=== PATIENT | male | born 1955 | race Caucasian/White ===

== ENCOUNTER 2020-02-27 07:46 | Outpatient (CLI) | payer BC, SELFPAY ==
--- NOTE | ~2020-02-27 | US_ITS ---
US right upper quadrant INDICATION: Elevated liver function tests. Increased lactic acid. PROCEDURE: Realtime right upper abdominal ultrasound. COMPARISON: No prior studies for comparison. FINDINGS: The pancreas is normal without focal mass or pancreatic ductal dilation. Liver echotexture is increased consistent with fatty infiltration. There is normal directional flow in the portal vei n. There are gallstones. Common bile duct measures 6 mm. No sonographic Solis's sign. 3.9 cm right re nal cyst. IMPRESSION: 1: Cholelithiasis. 2: Fatty infiltration of the liver. Reviewed, dictated and finalized at location A.
--- NOTE | ~2020-02-27 | CT_ITS ---
EXAMINATION: CT lung screening DATE: 02/27/2020 08:33 INDICATION: Personal history of nicotine dependence. TECHNIQUE: Computed tomography (CT) of the chest was performed without intravenous contrast. The dose -length product was 247.82 mGy-cm. Automated exposure control and iterative reconstruction technique were employed. COMPARISON: Chest x-ray dated 04/09/2006 FINDINGS: There is atherosclerosis of the aorta and coronary arteries. No evidence for aneurysm. No t horacic lymphadenopathy. No significant pleural or pericardial effusion. Small hiatal hernia. Fatty i nfiltration of the liver. There are gallstones. There is gynecomastia. No focal airspace consolidatio n. There is a subsolid 3 mm nodule left upper lobe, image 44. Mild thoracic spondylosis. Status post median sternotomy for CABG. IMPRESSION: 1. Lung-RADS category 2: Benign appearance or behavior. Continue annual screening with noncontrast lo w-dose chest CT in 12 months. Reviewed, dictated and finalized at location A. IMPRESSION: 1. Lung-RADS category 2: Benign appearance or behavior. Continue annual screeni ng with noncontrast low-dose chest CT in 12 months.
== END 2020-02-27 07:47 | disposition home or self-care (01) ==
PROVIDERS: PCP Family Medicine; Visit Provider Physician Assistant
DX: Z12.2 Encounter for screening for malignant neoplasm of respiratory organs (principal); Z87.891 Personal history of nicotine dependence; K76.0 Fatty (change of) liver, not elsewhere classified; K80.20 Calculus of gallbladder without cholecystitis without obstruction
CPT/HCPCS: 76705; G0297

== ENCOUNTER 2022-04-21 13:57 | Outpatient (CLI) | payer MEDICARE, SELFPAY ==
--- NOTE | ~2022-04-21 | XR_ITS ---
XR hip LT min 2V DATE: 04/21/2022 14:15 INDICATION: Left hip pain TECHNIQUE: AP and lateral views COMPARISON: None FINDINGS: There is mild left hip osteoid arthritis. No fracture, dislocation, avascular necrosis or b one destruction. The pubic symphysis and left sacroiliac joint are intact. IMPRESSION: Mild left hip osteoarthritis Reviewed, dictated and finalized at location A.
== END 2022-04-21 13:58 | disposition home or self-care (01) ==
LOC: ANHIMG 14:01
PROVIDERS: PCP Family Medicine; Visit Provider Family Medicine
DX: M16.12 Unilateral primary osteoarthritis, left hip (principal)
CPT/HCPCS: 73502

== ENCOUNTER 2023-08-12 15:33 | Outpatient (CLI) | payer MEDICARE, SELFPAY ==
--- NOTE | ~2023-08-12 | XR_ITS ---
EXAMINATION: XR lumbar spine min 4V DATE: 08/12/2023 15:57 INDICATION: Worsening chronic low back pain TECHNIQUE: Anteroposterior, lateral, and bilateral oblique views of the lumbar spine, and cone-down l ateral view of the lumbosacral junction were obtained. COMPARISON: None. FINDINGS: Bone alignment is normal. There is mild anterior wedging at L1, L2, and L3, likely physiolo gic. There is moderate loss of intervertebral disc space height at L4-5 and L5-S1. There is severe fa cet joint osteoarthritis at L5-S1. Small degenerative osteophytes project from the anterior endplates of multiple vertebral bodies. Changes of left total hip arthroplasty are noted. IMPRESSION: 1. Severe lower lumbar spondylosis without acute findings. Reviewed, dictated and finalized at location B.
--- NOTE | ~2023-08-12 | XR_ITS ---
EXAMINATION: XR thoracic spine 3V DATE: 08/12/2023 15:58 INDICATION: Thoracic back pain TECHNIQUE: AP, lateral and lateral swimmer's views of the thoracic spine were obtained. COMPARISON: None. FINDINGS: Bone alignment is normal. There is no fracture. There is moderate loss of intervertebral di sc space height at multiple levels in the thoracic spine. Moderate lower cervical spondylosis is also noted. Median sternotomy wires are consistent with prior cardiac surgery. IMPRESSION: 1. Moderate thoracic spondylosis. Reviewed, dictated and finalized at location B.
== END 2023-08-12 15:34 ==
PROVIDERS: PCP Family Medicine; Visit Provider Family Medicine
DX: M47.896 Other spondylosis, lumbar region (principal); M47.894 Other spondylosis, thoracic region
CPT/HCPCS: 72072; 72110

== ENCOUNTER 2023-12-05 12:22 | Outpatient (CLI) | payer MEDICARE, SELFPAY ==
--- NOTE | ~2023-12-05 | XR_ITS ---
XR chest 2V DATE: 12/05/2023 12:37 INDICATION: Cough for 3 weeks TECHNIQUE: PA and lateral views COMPARISON: February 27, 2020 CT lung screening 04/09/2006 portable AP chest FINDINGS: Status post sternotomy. Heart size is normal. Aortic calcification. No hilar or mediastinal enlargement. No pulmonary infiltrate or consolidation, pleural effusion or pulmonary vascular congestion or pneumo thorax is detected. IMPRESSION: No active cardiopulmonary disease Aortic atherosclerosis Status post sternotomy Reviewed, dictated and finalized at location B. [employer] SAL[employer]
== END 2023-12-05 12:23 ==
PROVIDERS: PCP Family Medicine; Visit Provider Nurse Practitioner
DX: R05.9 Cough, unspecified (principal); I70.0 Atherosclerosis of aorta
CPT/HCPCS: 71046

== ENCOUNTER → 2023-12-29 10:39 | Outpatient (CLI) | payer MEDICARE, SELFPAY ==
--- NOTE | ~2023-12-29 | CT_ITS ---
CT Scan of the Chest without Contrast: Clinical Indication: Lung cancer screening, personal history of nicotine dependence Technique: Contiguous sections were acquired throughout the chest without intravenous contrast. Dose reduction technique was used on this scan by utilizing automated exposure control and iterative recon struction technique. The dose-length product (DLP) was 176.40 mGy-cm. COMPARISON: 02/27/2020 Findings: There is no evidence of any significant mediastinal, hilar or axillary lymphadenopathy. Coronary elizabeth ry calcifications are present. There is no evidence of pleural or pericardial effusion. The lungs are clear. No pulmonary nodules or infiltrates are noted. Images through the upper abdomen reveal multiple small gallstones. Impression: Lung RADS 1: Negative. 12 month follow-up screening CT advised. Reviewed, dictated and finalized at location . SAW RUNNER Impression: Lung RADS 1: Negative. 12 month follow-up screening CT advised.
== END ==
PROVIDERS: PCP Nurse Practitioner; Visit Provider Nurse Practitioner
DX: Z12.2 Encounter for screening for malignant neoplasm of respiratory organs (principal); Z87.891 Personal history of nicotine dependence
CPT/HCPCS: 71271

== ENCOUNTER 2024-12-18 01:06 | Day surgery (SDC) | payer MEDICARE, SELFPAY ==
[2024-12-04 13:28] VITALS: BMI 30.4
--- OUTSIDE RECORDS SUMMARY | 2024-12-18 01:07 | XMS_ITS | Continuity of Care Document ---
Author Organization [facility] Address [address] [place] [address] Phone Care Team Providers Care Burglar Alarm Inspector Name Role Phone Arsen RINCONALLISON MARKSRavi Unavailable Unavailab le Allergies, Adverse Reactions, Alerts Substance Reaction Status Criticality No Known Allergies Active No Inform ation Medications Medication Instructions Dosage Effective Dates (start - stop) Status Comments amoxicillin 500 mg tablet take 4 tablets by oral route 2 hours prior to dental visits - Active Valium 5 mg tablet take 1 tablet by oral route 2 times every day 5 MG - Active hydrocodone 5 mg-acetaminophen 325 mg tablet take 1-2 tablets by oral route every 4 hours as needed for post operative pain control - Active VASCEPA (unknown strength) Not Available - Active ROSUVASTATIN CALCIUM (unknown strength) Not Available - Active IBUPROFEN (unknown strength) Not Available - Active CARVEDILOL (unknown strength) Not Available - Active BRILINTA (unknown strength) Not Available - Active Procedures Procedure Date X-ray Exam Hip Unilat With Pelvis When P erf 2-3 View Global/Postop followup visit X-ray Exam Hip Unilat With Pelvis When P erf 2-3 View Global/Postop followup visit X-ray Exam Hip Unilat With Pelvis When P erf 2-3 View Office/outpatient visit,est, mod 2021 MRI Upper extr joint, w/o contrast MRI Upper extr joint, w/o contrast X-ray exam shoulder complete, minimum 2 views Office/outpatient visit,new, mod 2021 Wrist Lacer Wrist Lacer Advance Directives Directive Yes / No Effective Date File Name No Information Encounters Encounter Description Practice Location Reason(s) For Visit Diagnoses Date Provider Providers Copied on Encounter [facility], [address], [id number], [place] tel:[phone] [facility] left hip (chief complaint) Pain in left hipPresence of left artificial hip joint 2 Arsen Rodrigues. [address], [id number] , [place]. tel: [phone] Referring Provider: Marco Vera, [address] [place] [address], [place], [address]. tel:[phone] [facility], [address], [id number], [place] tel:[phone] [facility] No Information 2 Arsen Rodrigues. [address] [address], [place], [place], [id number] , [place]. tel:[phone] [facility], [address], [id number], [place] tel:[phone] [facility] left hip (chief complaint) Pain in left hipLumbago NOSPresence of left artificial hip joint 2 Arsen Rodrigues. [address], [id number] , [place]. tel: [phone] Referring Provider: Ravi Espinosa, [address] [address], [place], [address]. tel:[phone] [facility], [address], [id number], [place] tel:[phone] [facility] Unilateral primary osteoarthritis, left hip 2 Lisa Andrei er. [address] [facility], [address], [place], [place], [id number] , [place]. tel:[phone] [facility], [address] [facility] [address], [place], [place], [id number], [place] [phone] [facility] Unilateral primary osteoarthritis, left hip 2 Lisa Andrei er. [address] [facility], [address], [place], [place], [id number] , [place]. tel:[phone] Office/outpa tient visit,est, mod [facility], [address] [facility] [address], [place], [place], [id number], [place] [phone] [facility] Left Hip (chief complaint) Pain in left hipUnilateral primary osteoarthritis, left hip 2 [place]. [address] [place] [address], [facility] [address], [place], [place], [id number] , [place]. tel:[phone] Referring Provider: Marco Vera, [address] [place] [address] [address], [place], [address]. tel:[phone] [facility], [address] [facility] [address], [place], [place], [id number], [place] tel:[phone] [facility] Pain in left shoulderPain in right shoulder 2 [facility]. [address] [facility], [address], [place], [place], [id number] , [place]. tel:[phone] Referring Provider: Owen Sigala, [address] [facility] [address], [place], [address]. tel:[phone] [facility], [address] [facility] [address], [place], [place], [id number], [place] tel:[phone] [facility] Pain in left shoulder 2 [facility]. [address] [facility], [address], [place], [place], [id number] , [place]. [phone] Referring Provider: Owen Sigala, [facility] [address], [place], [address]. tel:[phone] Office/outpa tient visit,[place], [facility], [address] [facility], [place], [place], [id number], [place] tel:[phone] [facility] Bilateral shoulders (chief complaint) Pain in left shoulderPain in right shoulderCarpal tunnel syndrome, left upper limbCarpal tunnel syndrome, right upper limbIncomplete rotator cuff rupture of left shoulder, not specified as traumaticIncomp lete rotator cuff rupture of right shoulder, not specified as traumaticBody mass index (BMI) 31.0-31.9, adult 2 Charis Weaver. [address] [place] [address], [address], [place], [address], [place]. tel:[phone] Referring Provider: Owen Sigala, [address] [place] [address] [address], [place], [address]. tel:[phone] Family History Family Member Type Diagnosis Age At Onset Brother Problem (finding) Heart Disease Mother Problem (finding) Heart Disease Father Problem (finding) Heart Disease Immunizations Vaccine Date Status Comments influenza, injectable, quadrivalent, (3 years or older) administered Note: per patient ; Source: Source Unspecified Payers Payer name Insurance type Covered green party ID Authoriza tion(s) AARP Medicare Advantage HMO PPO CI [id number] Social History Type Description Quantity Date Captured Comments Alcohol Use Details Caffeine Use Details Unknown Tobacco Use Status Current non-smoker Smoking Status Former smoker Sex Male Vital Signs Date / Time: Height Weight BMI Pulse Rate Blood Pressure Temperature Respiratory Rate Body Surface Area Head Circumference Head Circ. Percentile Wt./[place]. Percentile BMI percentile Pulse Ox Inhaled Ox 10:20 AM 68.00 in 95.254 kg (210.00 lbs) 31.9 3 kg/m eter (2) Chief Complaint And Reason For Visit From encounter dated '10/08/2022 10:15'. left hip (chief complaint). Description: Hadley presents to the office today for ongoing postop evaluation of his left posterior total hip arthroplasty, date of surgery 07/22/2022. He has concluded physical therapy, and has initiated an exercise program on his own. He endorses mild intermittent gluteal pain that is worsened with increases to activity. Denies the use of interventions for pain control. Denies injury, trauma, or fall since last office visit. Denies fever, chills, generalized feelings of illness or malaise. He would like to discuss obtaining antibiotic medications for dental visits. He is ambulating without assistive device at today's office visit. Reason For Referral Reason For Referral No Information Plan Of Treatment Date Type Action Status Goal Dietary management education , guidance, and counseling completed Referral Ordered: X-ray Exam Hip Unilat With Pelvis When Perf 2-3 View LT hip ordered Referral Ordered: MRI Upper extr joint, w/o contrast RT shoulder Appointment date/timeframe: 05/12/2022 ordered Referral Ordered: MRI Upper extr joint, w/o contrast LT shoulder Appointment date/timeframe: 05/12/2022 ordered Referral Ordered: X-ray exam shoulder complete, minimum 2 views Bilateral ordered History Of Present Illness Encounter Date Complaint History Of Prese nt Illness left hip Hadley presents to the office today for ongoing postop evaluation of his left posterior total hip arthroplasty, date of surgery 07/22/2022. He has concluded physical therapy, and has initiated an exercise program on his own. He endorses mild intermittent gluteal pain that is worsened with increases to activity. Denies the use of interventions for pain control. Denies injury, trauma, or fall since last office visit. Denies fever, chills, generalized feelings of illness or malaise. He would like to discuss obtaining antibiotic medications for dental visits. He is ambulating without assistive device at today's office visit. left hip Hadley is a plea ger 66-year-old male who presents to the office today for initial postop evaluation of his left total hip arthroplasty, date of surgery 07/22/2022. Denies injury, trauma, or fall since surgical intervention. Denies fever, chills, generalized feelings of illness or malaise. States compliance with the use of aspirin for DVT prophylaxis and with maintaining posterior hip precautions. He is participating in physical therapy and feels that it is going all right. He endorses moderate constant trochanteric pain that is worsened with sit to stand maneuver sitting for an extended period of time ambulating for an extended period of time, lying down for an extended period of time, and worsened after physical therapy. Pain is managed with the use of movement of the hip, hydrocodone, acetaminophen, meloxicam. Indicates that he did utilize a Valium at night and has been able to obtain 3-4 hours of sleep at a time with its use. He is now experiencing significant diffuse low and mid back pain that is worsened with therapy exercises. States concern over ongoing long-term constant pain would like to discuss medication usage or possible changes. He is ambulating with the use of a cane at today's office visit and accompanied to the visit by his . Left Hip Hadley is a 66 y ear-old male who presents to the office for evaluation of left hip pain. He presents for significant left hip pain. He is 5 foot 8 weighs 210 pounds. He denies acute trauma. His pain as an 8 out of 10. He has severe aching, constant dull pain -- characteristics include sharp, stabbing and throbbing. His symptoms include burning, decreased motion, difficulty sleeping, giving way, limping, night pain, weakness. He endorses severe groin pain that is functionally limiting with range of motion. Symptoms are improved with [id number] medication such as ibuprofen, . And Tylenol. He has used a cane and been limping.He is a history of cardiac stenting and open heart surgery he has recently come off his Brilinta. He is recently retired from a job in sales. His pain is functionally limiting has been present for greater than 6 months. It is affecting his activities of daily living. -- He has actually started using some hydrocodone to help this pain. We discussed that this was not a good plan and he should limit utilizing any narcotics. Bilateral shoulders Michael is a very pleasant 66-year-old left-hand dominant male who presents for initial evaluation of chronic, atraumatic bilateral shoulder pain. He states that the left shoulder has been hurting for years. He has seen an outside provider for this. He has been in physical therapy recently. He has gone to a full course. Despite this, he notes persistent, functionally limiting left shoulder pain. The same is true on the right side. He has noticed this for as long, but currently, his right shoulder bothers him more than his left. He states that the pain is worse with lifting things away from his body or overhead. He feels very weak. He has night pain. This pain and functional limitation is persistent despite a full course of physical therapy recently. He also endorses some intermittent bilateral hand numbness. He cannot really describe where the numbness is. It will wake him up from night sometimes. He denies any neck or radicular symptoms. Of note, he does have a history of an [place] last year. He saw his Pathology Laboratory Aide yesterday and has been cleared. He is doing well. Functional Status Date Functional Assessmen t No Information Instructions Date Instruction Additional Infor al We discussed in [place] the specifics of the operation consisting of the pre-operative evaluation, the surgical procedure, and the post operative recovery course. I explained the prosthetic ( ceramic on polyethylene bearing). We discussed the risks and benefits. Specifically, bleeding, possible blood transfusion, DVT, PE, dislocation, infection, persistent pain, mechanical loosening, leg length discrepancy. We also obtained templating radiographs to size the components and measure the pre-operative leg lengths. We discussed the hospital stay vs outpatient total joint procedure and the recovery period. Including, post op PT and DVT prophylaxis. Appropriate medical evaluation will be obtained and the patient will be scheduled for total hip arthroplasty.We discussed that he has femoral acetabular impingement which is likely increasing his him symptoms and hip pain. Given his cardiac history is surgery would need to be performed at [facility]. We will proceed through a posterior lateral approach. Related to Unilateral primary osteoarthritis, left hip Giving encouragement to exercise Related to Body mass index [BMI] 31.0-31.9, adult Dietary management e ducation, guidance, and counseling Related to Body mass index [BMI] 31.0-31.9, adult Assessments Type Assessment Date assessment Pain in left hip assessment Presence of left artificial hip joint impression Left posterior total hip arthroplasty, date of surgery 07/22/2022.No suspicion of mechanical loosening or septic joint at this time. He will continue to maintain an adequate level of physical activity, a strengthening program, and an exercise program. He may use rest, ice, elevation, [id number] pain medications and NSAIDs for pain and inflammation. Discussed ongoing long-term recovery after total hip arthroplasty, and anticipatory events throughout the next year. He will utilize an antibiotic prior to any dental visits, and a prescription was sent to his pharmacy at the conclusion of today's office visit. He demonstrates appropriate understanding of the diagnosis and plan of care at this time and will follow up with our office in one year for both radiologic and physical evaluation of his left total hip arthroplasty. He was encouraged to contact the office with any questions or concerns. Dictation completed with [employer] Practice Edition software, grammatical variances and spelling errors may inadvertently occur Patient Care Teams Name Effective Dates (start - stop) Status Members No Information
--- OUTSIDE RECORDS SUMMARY | 2024-12-18 01:07 | XMS_ITS | Referral Summary ---
Author Organization [facility] [address] Address [address] [place] [address] Care Team Providers Care Bowling Ball Finisher Name Role Phone Katya An DO Primary Care Provider [phone]- [phone] Alirio Rosas MD Unavailable Marco Gonzalez MD Unavailable [phone] Encounters Date Type Department Care Team Description 11/08/2024 10:30 AM GYPSUM CALCINER Procedure visit [facility] Dermatology [address] [facility] [address] [place] [address] Cl Josue MD Squamous cell carcinoma of skin of left upper limb, including shoulder (Primary Dx); Actinic keratosis; Dyshidrotic eczema 10/17/2024 Telephone [facility] Cardiology [address] [facility] [address] [place] [address] Alirio Rosas MD Med Management from Last 3 Months Allergies Active Allergy Reactions Criticality Noted Date Comments Penicillins Rash Medium 03/05/2013 Medications olmesartan (BENICAR) 40 mg tablet Take 0.5 tablets (20 mg total) by mouth daily Active Vascepa 1 gram capsule Take 2 capsules (2 g total) by mouth 2 (two) times a day 0 Active rosuvastatin (CRESTOR) 40 mg tablet Take 1 tablet (40 mg total) by mouth every other day 0 Active lutein-zeaxanth in 20 mg- 1,000 mcg capsule Take 1 capsule by mouth daily Active metFORMIN XR (GLUCOPHAGE XR) 500 mg 24 hr tablet Take 1 tablet (500 mg total) by mouth 2 (two) times a day 2 Active aspirin 81 mg enteric coated tabletIndicatio ns:Deep Vein Thrombosis Prevention Take 1 tablet (81 mg total) by mouth 2 (two) times a day 2 Active carvediloL (COREG) 6.25 mg tablet Take 1 tablet (6.25 mg total) by mouth 2 (two) times a day with meals 3 Active naproxen (NAPROSYN) 500 mg tablet Take 1 tablet (500 mg total) by mouth 2 (two) times a day with meals Active empagliflozin (Jardiance) 10 mg tablet TAKE 1 TABLET BY MOUTH DAILY 100 tablet 3 4 Active nitroglycerin (NITROSTAT) 0.[address] 1 tablet (0.4 mg total) under the tongue every 5 (five) minutes as needed for chest pain May repeat dose q 5 min, up to 3 doses total 25 tablet 3 4 Active fluorouraciL (EFUDEX) 5 % cream Apply topically daily For 4 weeks to forearms 40 g 1 5 Active clobetasoL (TEMOVATE) 0.05 % ointment Apply topically 2 (two) times a day as needed (irritation on hands) 60 g 1 5 Active Active Problems Problem Noted Date Diagnosed Date Angina pectoris, unspecified 07/12/2024 Borderline diabetes mellitus 07/19/2022 Gout 07/19/2022 Coronary artery disease 07/19/2022 Hypertension 07/19/2022 Myocardial infarction 07/19/2022 Obesity (BMI 30.0-34.9) 07/19/2022 Rectal fissure 07/19/2022 Gait instability 07/19/2022 BPH (benign prostatic hyperplasia) 07/19/2022 Gall bladder stones 07/19/2022 CKD (chronic kidney disease) 07/19/2022 Primary osteoarthritis of left hip 05/27/2022 Overview (05/27/2022): Added automatically from request for surgery [id number] Hyperlipidemia 05/05/2021 Type 2 diabetes mellitus 05/05/2021 Myocardial infarction 05/05/2021 Special screening for malignant neoplasms, colon 02/09/2019 Overview (02/09/2019): Added automatically from request for surgery [id number] 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 Rectal pain 12/02/2018 Essential hypertension 12/02/2018 CAD (coronary artery disease) 12/02/2018 CKD (chronic kidney disease) stage 3, GFR 30-59 ml/min 12/02/2018 Renal cyst 12/02/2018 Obesity (BMI 30-39.9) 12/02/2018 Hx of CABG 09/19/2018 Anal fissure 06/22/2011 Immunizations Immunization Administration Dates Next Due Influenza, Quadrivalent, Rec ombinant, Egg Free, Preservative Free, Intramuscular 08/11/2020 Influenza, Quadrivalent, Spl it, Preservative Free, Intramuscular 10/03/2018 Influenza, Trivalent, IM (MDV) 08/31/2011 Tdap 10/03/2018 Social History Tobacco Use Types Packs/Day Years Used Date Smoking Tobacco: Former Cigarettes Q uit: 12/01/2018 Smokeless Tobacco: Never Comments:on and off for year s Alcohol Use Standard Drinks/Week Comments Yes 4 (1 standard drink = 0.6 oz pur e alcohol) AUDIT-C Answer Date Recorded Q1: How often do you have a drink containing alc ohol? 2-3 times a week 07/22/2022 Q2: How many drinks containi ng alcohol do you have on a typical day when you are drinking? 3 or 4 07/22/2022 Q3: How often do you have si x or more drinks on one occasion? Never 07/22/2022 Sex and Gender Information Value Date Recorded Sex Assigned at Not on file Legal Sex Male 3:44 AM GYPSUM CALCINER Gender Identity Not on file Sexual Orientation Not on file Last Filed Vital Signs Vital Sign Reading Time Taken Comments Blood Pressure 126/74 11/08/2024 10:57 AM GYPSUM CALCINER Pulse 53 11/08/2024 10:57 AM GYPSUM CALCINER Temperature 36.3 C (97.3 F) 07/23/2022 3:45 AM CDT Respiratory Rate 18 07/23/2022 3:45 AM CDT Oxygen Saturation 96% 11/08/2024 10:57 AM GYPSUM CALCINER Inhaled Oxygen Concentration - - Weight 89.4 kg (197 lb) 07/12/2024 11:26 AM CDT Height 172.7 cm (5' 8 ) 07/12/2024 11:26 AM CDT Body Mass Index 29.95 07/12/2024 11:26 AM CDT Plan of Treatment Not on file Medical Devices Implanted Type Area Metal Bonding Helper Device Identifier Shelf Expiration Date Model / Serial / Lot [employer] [id number] Synergy 3mm 16mm 144cm Radiopaque 1 Access Port Inflation Lumen - S0 - [id number] Implanted:Qty: 1 on 05/06/2021 by Alirio Rosas MD at [facility] Stent [employer] 07/14/2022 [id number] / 0 / [id number] Description:Circumflex [employer] [id number] Synergy 3.5mm 38mm 144cm Radiopaque 1 Access Port Inflation Lumen - S0 - [id number] Implanted:Qty: 1 on 05/06/2021 by Alirio Rosas MD at [facility] Stent [employer] 09/15/2022 [id number] 350 / 0 / [id number] Description:Circumflex [employer] Shell Acetabular Trident Ii Tritanium F Od56mm Hip 5 Screw Hole Cluster Sterile 702-04-56f - [id number] Implanted:Qty: 1 on 07/22/2022 by Marco Gonzalez MD at [facility] Left: Hip [employer] [id number] 04/09/2027 702-04-56F / / [id number] [employer] Screw Bone Trident Ii L50mm Od6.5mm Low Profile Hexagonal Sterile 7338-8309 - [id number] Implanted:Qty: 1 on 07/22/2022 by Marco Gonzalez MD at [facility] Left: Hip [employer] [id number] 05/05/2027 1465-2118 / / [id number] [employer] Insert Trident 0deg X3 36mm Id 723-00-36f - [id number] Implanted:Qty: 1 on 07/22/2022 by Marco Gonzalez MD at [facility] Left: Hip [employer] 05/16/2027 723-00-36F / / [id number] [employer] Accolade 108mm 35mm Modular Hip 127d 5 Taper Stem Femoral Sterile [id number] - [id number] Implanted:Qty: 1 on 07/22/2022 by Marco Gonzalez MD at [facility] Left: Hip [employer] [id number] 05/31/2027 [id number] / / [id number] [employer] V40 36mm Anatomic Hip -2.5mm Offset Taper Head Femoral [employer] 6570-0-436 - [id number] Implanted:Qty: 1 on 07/22/2022 by Marco Gonzalez MD at [facility] Left: Hip [employer] [id number] 08/02/2025 6570-0-436 / / [id number] Procedures Procedure Name Priority Date/Time Associated Diagnosis Comments POCT LIPID PANEL Routine 07/12/2024 11:3 0 AM CDT Hyperlipidemia, unspecified hyperlipidemia type EGFR Routine 07/09/2022 2:32 PM CDT Preop testing HEMOGLOBIN A1C Routine 07/09/2022 2:32 PM CDT Preop testing COLONOSCOPY 03/02/2019 11:50 AM CDT PSA SCREEN STAT 12/02/2018 10:[address] ABDOMEN PELVIS W CONTRAST ED 12/02/2018 12:33 AM GYPSUM CALCINER from Last 3 Months or Most Recently Relevant to Health Maintenance Results * POCT lipid panel (07/12/2024 11:30 AM CDT) Cholesterol, POC 161 mg/dL HDL, POC 27 mg/dL Triglycerides, POC 343 mg/dL LDL Cholesterol POC 65 mg/dL Chol/HDL Ratio, POC 2.4 Non-HDL Cholesterol, POC 133 mg/dL Cholesterol Total, POC 161 mg/dL Capillary blood 07/12/2024 1 1:30 AM CDT us Alirio Rosas MD POINT OF CARE TEST ORDERABLES Fi nal Result * eGFR (07/09/2022 2:32 PM CDT) eGFR 77 mL/min/1. 73 m2 [facility] Comment: Interpretive Data Reference Interval Normal >/= 90 mL/min/1.73m2 Mildly decreased* 60 - 89 mL/min/1.73m2 Mildly to moderately decreased 45 - 59 mL/min/1.73m2 Moderately to severely decreased 30 - 44 mL/min/1.73m2 Severely decreased 15 - 29 mL/min/1.73m2 Kidney Failure < 15 mL/min/1.73m2 *Relative to young adult level Estimated glomerular filtration rate is determined by the 2020 CKD-EPI equation recommended by the National Kidney Foundation (A Unifying Approach to GFR Estimation: Recommendations of the NKF-ASK Task Force on Reassessing the Inclusion of Race in Diagnosing Kidney Disease, JASN 2020). The CKD-EPI equation should not be used for patients with unstable renal function and has not been validated in children and those over 70. Current interpretive data was last reviewed 2021. Blood 07/09/2022 2:32 PM CDT 07/09/2022 2:32 PM CDT us Suri Perez NP LAB BLOOD ORDERABLES Final R esult [facility] [address] Department [place] [address] * (ABNORMAL) Hemoglobin A1c (07/09/2022 2:32 PM CDT) Hgb A1C 5.8(H) 4.0 - 5.6 % [facility] Estimated Average Glucose 120 mg/dL [facility] Comment: The ADA recommends reporting an estimated Average Glucose (eAG) with all Hemoglobin A1c results using the equation derived from a study of 507 normal and diabetic adults. Minority populations were underrepresented and children were not included. (Diabetes Care 31:8653-4693, 2008). The eAG is not equivalent to a fasting glucose. Blood 07/09/2022 2:32 PM CDT 07/09/2022 2:32 PM CDT us Suri Perez NP LAB BLOOD ORDERABLES Final R esult [facility] [address] Department [place] [address] * COLONOSCOPY (03/02/2019 11:50 AM CDT) Anatomical Region Laterality Modality Other Narrative Procedure Note Max Edmond MD - 03/02/2019 11:50 AM CDT ENDOSCOPY LAB Patient Name: Hadley Culver Procedure Date: 03/02/2019 11:50 AM Admit Type: Outpatient Room: [facility] Date of : 1955 Instrument Name: [id number] Gender: Male Note Status: Finalized Procedure: Colonoscopy Indications: Screening for colorectal malignant neoplasm Comorbidities No comorbidities Providers: Max Edmond M.D. Referring MD: Ian Hinojosa MD Medicines: See the Anesthesia note for documentation of the administered medications Complications: No immediate complications. Estimated blood loss:Minimal. Estimated Blood Loss: Estimated blood loss was minimal. Procedure: Pre-Anesthesia Assessment: - Prior to the procedure, a History and Physical was performed, and patient medications, allergies and sensitivities were reviewed. The patient's tolerance of previous anesthesia was reviewed. - The risks and benefits of the procedure and thesedation options and risks were discussed with the patient. All questions were answered and informed consent wasobtained. The benefits, risks and alternatives of the procedureand sedation were discussed and informed consent wasobtained. All questions were answered. Please refer to the signed informed consent document in the medical record. Thescope was passed under direct vision. The Colonoscope was introduced through the anus and advanced to the the terminal ileum, with identification of the appendiceal orifice and IC valve. The bowel preparation used was SUPREP. The quality of the bowel preparation wasevaluated using the BBPS ([place] Bowel Preparation Scale) with scores of: Right Colon = 3 (entire mucosa seen wellwith no residual staining, small fragments of stool oropaque liquid), Transverse Colon = 2 (minor amount of residual staining, small fragments of stool and/or opaqueliquid, but mucosa seen well) and Left Colon = 3 (entire mucosa seen well with no residual staining, small fragments of stool or opaque liquid). The total BBPS score equals 8. The quality of the bowel preparation was excellent.Bowel prep was administered using a split dose. Findings: The perianal and digital examinations were normal. Pertinentnegatives include fissure healed, wounds ok. A 3 mm polyp was found in the rectum rectum (benign-appearinglesion). The polyp was sessile. The polyp was removed with a cold biopsyforceps. Resection and retrieval were complete. The exam was otherwise without abnormality on direct and retroflexion views. Impression: - One benign appearing 3 mm polyp in the rectum in the rectum, removed with a cold biopsy forceps. Resectedand retrieved. - The examination was otherwise normal on direct and retroflexion views. Recommendation: - Repeat colonoscopy in 5-10 years for surveillancebased on pathology results. Electronically signed by Max Edmond M.D. Max Edmond M.D. 03/02/2019 12:44:21 PM Number of Addenda: 0 Note Initiated On: 03/02/2019 11:50 AM us Max Edmond MD ENDOSCOPY PROCEDURES Fin al Result * PSA screen (12/02/2018 10:50 AM GYPSUM CALCINER) PSA-Total 0.69 <=5.40 ng/mL [facility] Comment: Interpretive Data AGE SEX REFERENCE INTERVAL 0 minutes-150 years Female None 0 minutes-49 years Male None 50-59 years Male 0-3.90 60-69 years Male 0-5.40 70-79 years Male 0-6.20 80-150 years Male 0-6.20 Current interpretive data last revised 2018. Blood specimen (specimen) 12/02/2018 10:50 AM GYPSUM CALCINER 12/02/2018 11:01 AM GYPSUM CALCINER Narrative [facility] - 12/02/2018 11:37 AM GYPSUM CALCINER us Danny Lynn MD LAB BLOOD ORDERABLES Radha l Result [facility] [address] Department [place] [address] * CT Abdomen Pelvis W Contrast (12/02/2018 12:33 AM GYPSUM CALCINER) Anatomical Region Laterality Modality Body N/A Computed Tomogra phy 12/02/2018 10:3 0 AM GYPSUM CALCINER Addenda Addendum by Norah Buckley MD on 12/02/2018 11:39 AM GYPSUM CALCINER Rectal wall does appear to be prominent. However, no surrounding soft tissue inflammatory change or abscess is seen. Electronically signed by: Norah Buckley M.D. Impressions 12/02/2018 10:35 AM GYPSUM CALCINER 1. Hepatomegaly with hepatic steatosis 2. Cholelithiasis 3. Very small hiatal hernia 4. Prominence of the wall the sigmoid colon, likely related to incomplete distention. Associated changes of obstruction or acute inflammatory change is not seen. This report is in agreement with the preliminary report Electronically signed by: Norah Buckley M.D. Narrative 12/02/2018 10:35 AM GYPSUM CALCINER EXAM: CT abdomen and pelvis with IV contrast HISTORY: Severe rectal pain that has increased in intensity over one to 2 weeks. Previous hemorrhoidectomy 6-7 years ago. Surgical history of anal fistula repair COMPARISON: None available. FINDINGS: Spiral CT of the abdomen and pelvis was obtained with 95 mL Optiray 350 intravenous contrast. A preliminary report was faxed to emergency room on 12/02/2018 at 0112 hours. Lung bases are clear. There is hepatic steatosis with hepatomegaly of 20 to centimeter. There is no focal liver mass. There is cholelithiasis with no bile duct dilatation. There is no gallbladder wall thickening or pericholecystic fluid. Pancreas is normal. Adrenal glands are symmetric. Spleen is normal. There are right renal cysts. There is no hydronephrosis or urolithiasis. Ureters and urinary bladder normal. Prostate gland and seminal vesicles are normal. There is no bowel obstruction. Mild amount stool is seen in the right hemicolon and transverse colon. The descending and sigmoid colon is completely decompressed. Bowel wall prominence in the sigmoid colon is likely related to incomplete distention. No surrounding soft tissue inflammatory changes noted. There is no pneumatosis. The appendix is normal. There is a very small hiatal hernia. There is scattered calcification the abdominal aorta and iliac arteries with no aneurysm. There is no abdominal or pelvic ascites or lymphadenopathy. There are a few mesenteric lymph nodes in the left mid abdomen with minimal soft tissue stranding suggesting very mild nonspecific mesenteritis. There is an extremely tiny periumbilical hernia containing fat. Inguinal regions are normal. There are degenerative changes in the thoracal lumbar spine with no focal bone lesion. Procedure Note Norah Buckley MD - 12/02/2018 EXAM: CT abdomen and pelvis with IV contrast HISTORY: Severe rectal pain that has increased in intensity over one to 2 weeks. Previous hemorrhoidectomy 6-7 years ago. Surgical history of anal fistula repair COMPARISON: None available. FINDINGS: Spiral CT of the abdomen and pelvis was obtained with 95 mL Optiray 350 intravenous contrast. A preliminary report was faxed to emergency room on 12/02/2018 at 0112 hours. Lung bases are clear. There is hepatic steatosis with hepatomegaly of 20 to centimeter. There is no focal liver mass. There is cholelithiasis with no bile duct dilatation. There is no gallbladder wall thickening or pericholecystic fluid. Pancreas is normal. Adrenal glands are symmetric. Spleen is normal. There are right renal cysts. There is no hydronephrosis or urolithiasis. Ureters and urinary bladder normal. Prostate gland and seminal vesicles are normal. There is no bowel obstruction. Mild amount stool is seen in the right hemicolon and transverse colon. The descending and sigmoid colon is completely decompressed. Bowel wall prominence in the sigmoid colon is likely related to incomplete distention. No surrounding soft tissue inflammatory changes noted. There is no pneumatosis. The appendix is normal. There is a very small hiatal hernia. There is scattered calcification the abdominal aorta and iliac arteries with no aneurysm. There is no abdominal or pelvic ascites or lymphadenopathy. There are a few mesenteric lymph nodes in the left mid abdomen with minimal soft tissue stranding suggesting very mild nonspecific mesenteritis. There is an extremely tiny periumbilical hernia containing fat. Inguinal regions are normal. There are degenerative changes in the thoracal lumbar spine with no focal bone lesion. IMPRESSION: 1. Hepatomegaly with hepatic steatosis 2. Cholelithiasis 3. Very small hiatal hernia 4. Prominence of the wall the sigmoid colon, likely related to incomplete distention. Associated changes of obstruction or acute inflammatory change is not seen. This report is in agreement with the preliminary report Electronically signed by: Norah Buckley M.D. Max Fleming MD IMPatricia CT PROCEDURES Edited Resul t - Final from Last 3 Months or Most Recently Relevant to Health Maintenance Insurance MEDICARE SOLUTIONS MEDICARE SOLUTIONS MEDICARE SOLUTIONS Advance Directives For more information, please contact: [phone] * Full Code (Latest Code Status on File) Date Activated Date Inactivated Comments 07/22/2022 4:52 PM 07/23/2022 6:12 PM * Full Code Date Activated Date Inactivated Comments 05/05/2021 6:49 PM 05/07/2021 5:34 PM * Full Code Date Activated Date Inactivated Comments 03/02/2019 11:33 AM 03/02/2019 5:28 PM * Full Code Date Activated Date Inactivated Comments 12/02/2018 3:32 AM 12/04/2018 6:21 PM Care Teams Bowling Ball Finisher Relationship Specialty Start Date End Date YuedevonmonicaKatya DO PCP - General Family Medicine 08/25/20 Alirio Rosas MD Referring Physician Cardiovascular Disease 05/07/21 Marco Gonzalez MD [address] [address] Consulting Physician Orthopedic Surgery 07/23/22
--- OUTSIDE RECORDS SUMMARY | 2024-12-18 01:07 | XMS_ITS | Clinical Summary ---
Author Organization [facility] [address] Address [address] [place] [address] Care Team Providers Care Padding Gluer Name Role Phone Katya An DO Primary Care Provider [phone] Alirio Rosas MD Unavailable Marco Gonzalez MD Unavailable Allergies Active Allergy Reactions Criticality Noted Date [...] (05/27/2022): Added automatically from request for surgery [id number] Hyperlipidemia 05/05/2021 Type 2 diabetes mellitus 05/05/2021 Myocardial infarction 05/05/2021 Special screening for malignant neoplasms, colon 02/09/2019 Overview (02/09/2019): Added automatically from request for surgery [id number] 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 Rectal pain 12/02/2018 Essential hypertension 12/02/2018 CAD (coronary artery disease) 12/02/2018 CKD (chronic kidney disease) stage 3, GFR 30-59 ml/min 12/02/2018 Renal cyst 12/02/2018 Obesity (BMI 30-39.9) 12/02/2018 Hx of CABG 09/19/2018 Anal fissure 06/22/2011 Encounters Date Type Department Care Team Description 11/08/2024 10:30 AM PROP MAKING SUPERVISOR Procedure visit [facility] D[facility] [address] [place] [address] Cl Josue MD Squamous cell carcinoma of skin of left upper limb, including shoulder (Primary Dx); Actinic keratosis; Dyshidrotic eczema 10/17/2024 Telephone [facility] [address] [place] [address] Alirio Rosas MD Med Management from Last 3 Months Immunizations Immunization Administration Dates Next Due Influenza, Quadrivalent, Rec ombinant, Egg Free, Preservative Free, Intramuscular 08/11/2020 Influenza, Quadrivalent, Spl it, Preservative Free, Intramuscular 10/03/2018 Influenza, Trivalent, IM (MDV) 08/31/2011 Tdap 10/03/2018 Surgical History Surgery Date Site/Laterality Comments COLONOSCOPY ANAL FISSURECTOMY INGUINAL HERNIA REPAIR Left CORONARY ARTERY BYPASS GRAFT 10/31/2005 - 10/30/2006 Left internal mammary artery to left anterior descending, saphenous vein graft to the posterior descending branch of the right coronary CARDIAC STENT PLACEMENT 2020 Medical History Medical History Date Comments Hyperlipidemia Coronary artery disease Myocardial infarction (HCC) Rectal fissure Hypertension Borderline diabetes mellitus Obesity (BMI 30.0-34.9) Gout Gait instability BPH (benign prostatic hyperplasia) Gall bladder stones CKD (chronic kidney disease) Renal cyst Osteoarthritis of left hip Family History Medical History Relation Name Comments Coronary artery disease Brother 2 Sherrill nary Artery Bypass Graft; Heart attack Father Myocardial Infa rction; Cause of : Myocardial Infarction coronary artery bypass Father Other Mother Stroke during H eart valve OR; Cause of : Stroke during Heart valve OR coronary artery bypass Mother Relation Name Status Comments Brother 1 Alive Brother 2 Father (Age 71) Mother (Age 71) Social History Tobacco Use Types Packs/Day Years [...] on file Legal Sex Male 3:44 AM PROP MAKING SUPERVISOR Gender Identity Not on file Sexual Orientation Not on file Obstetrics History Last Filed Vital Signs Vital Sign Reading Time Taken Comments Blood Pressure 126/74 11/08/2024 10:57 AM PROP MAKING SUPERVISOR Pulse 53 11/08/2024 10:57 AM PROP MAKING SUPERVISOR Temperature 36.3 C (97.3 F) 07/23/2022 3:45 AM CDT Respiratory Rate 18 07/23/2022 3:45 AM CDT Oxygen Saturation 96% 11/08/2024 10:57 AM PROP MAKING SUPERVISOR Inhaled Oxygen Concentration - - Weight 89.4 kg (197 lb) 07/12/2024 11:26 AM CDT Height 172.7 cm (5' 8 ) 07/12/2024 11:26 AM CDT Body Mass Index 29.95 07/12/2024 11:26 AM CDT Plan of Treatment Health Maintenance Due Date Last Done Comments Albumin Creatinine Ratio, Urine 1955 Depression Screening 1955 Hepatitis C Screening 1955 Dilated Eye Exam 1955 Foot Exam 1955 Hepatitis B Screening 1973 Zoster Vaccine (2 of 3) 03/14/2016 01/18/2016 Abdominal Aortic Aneurysm (A AA) Screen 2020 12/02/2018 Well Visit 65+ 2020 Prostate Cancer Screening-PSA 12/02/2020 12/02/2018 Hemoglobin A1C 01/06/2023 07/09/2022, 05/06/2021 eGFR 07/09/2023 07/09/2022, 05/31, 05/07/2021, Additional history exists Fall Risk Assessment 07/23/2023 07/23/2022 Covid-19 Vaccine (5 - 4-2 5 season) 2024 04/13/2022, 08/11/2021, 12/23/2020, Additional history exists Influenza Vaccine (#1) 2024 , 08/11/2020, 10/15/2019, Additional history exists Lipid Panel 07/12/2025 07/12/2024, 07/01, 05/11/2022, Additional history exists DTaP/Tdap/Td Vaccine (2 - Td or Tdap) 10/03/2028 10/03/2018 Colon Cancer Screening-Colonoscopy 03/02/2029 03/02/2019 Colon Cancer Screening-CT Colonography Discontinued 03/02/2019 Colon Cancer Screening-DNA Stool Discontinued 03/02/20 Colon Cancer Screening-FIT Discontinued 03/02/2019 Colon Cancer Screening-Sigmoidoscopy Discontinued 03/02/2019 Pneumococcal vaccine 65+ Completed 06/10/2022, 05/01 Medical Devices Implanted Type Area Unit Controller Device Identifier Shelf Expiration Date Model / Serial / Lot [employer] [id number] Synergy 3mm 16mm 144cm Radiopaque 1 Access Port Inflation Lumen - S0 - [id number] Implanted:Qty: 1 on 05/06/2021 by Alirio Rosas MD at [facility] Stent [employer] 07/14/2022 [id number] 300 / 0 / [id number] Description:Circumflex [employer]is [id number] Synergy 3.5mm 38mm 144cm Radiopaque 1 Access Port Inflation Lumen - S0 - [id number] Implanted:Qty: 1 on 05/06/2021 by Alirio Rosas MD at [facility] Stent [employer] 09/15/2022 [id number] 350 / 0 / [id number] Description:Circumflex [employer] Shell Acetabular Trident Ii Tritanium F Od56mm Hip 5 Screw Hole Cluster Sterile 702-04-56f - [id number] Implanted:Qty: 1 on 07/22/2022 by Marco Gonzalez MD at [facility] Left: Hip [employer] [id number] 04/09/2027 702-04-56F / / [id number] [employer] Screw Bone Trident Ii L50mm Od6.5mm Low Profile Hexagonal Sterile 2881-7345 - [id number] Implanted:Qty: 1 on 07/22/2022 by Marco Gonzalez MD at [facility] Left: Hip [employer] [id number] 05/05/2027 [id number] / / [id number] [employer] Insert Trident 0deg X3 36mm Id 723-00-36f - [id number] Implanted:Qty: 1 on 07/22/2022 by Marco Gonzalez MD at [facility] Left: Hip [employer] 05/16/2027 723-00-36F / / [id number] [employer] Accolade 108mm 35mm Modular Hip 127d 5 Taper Stem Femoral Sterile [id number] - [id number] Implanted:Qty: 1 on 07/22/2022 by Marco Gonzalez MD at [facility] Left: Hip [employer] [id number] 05/31/2027 [id number] / / [id number] [employer] V40 36mm Anatomic Hip -2.5mm Offset Taper Head Femoral [employer] 6570-0-436 - [id number] Implanted:Qty: 1 on 07/22/2022 by Marco Gonzalez MD at [facility] Left: Hip [employer] [id number] 08/02/2025 6570-0-436 / / [id number] Procedures Procedure Name Priority Date/Time Associated Diagnosis Comments POCT LIPID PANEL Routine 07/12/2024 11:3 0 AM CDT Hyperlipidemia, unspecified hyperlipidemia type EGFR Routine 07/09/2022 2:32 PM CDT Preop testing HEMOGLOBIN A1C Routine 07/09/2022 2:32 PM CDT Preop testing COLONOSCOPY 03/02/2019 11:50 AM CDT PSA SCREEN STAT 12/02/2018 10:[address] ABDOMEN PELVIS W CONTRAST ED 12/02/2018 12:33 AM PROP MAKING SUPERVISOR from Last 3 Months or Most Recently [...] PM CDT) eGFR 77 mL/min/1. 73 m2 [facility] Comment: Interpretive Data Reference Interval Normal >/= [...] NP LAB BLOOD ORDERABLES Final R esult [facility] [address] [place] [address] * (ABNORMAL) Hemoglobin A1c (07/09/2022 2:32 PM CDT) Hgb A1C 5.8(H) 4.0 - 5.6 % [facility] Estimated Average Glucose 120 mg/dL [facility] Comment: The ADA recommends reporting an estimated Average Glucose (eAG) with all Hemoglobin A1c results using the equation derived from a study of 507 normal and diabetic adults. Minority populations were underrepresented and children were not included. (Diabetes Care 31:6593-5714, 2008). The eAG is not equivalent to a fasting glucose. Blood 07/09/2022 2:32 PM CDT 07/09/2022 2:32 PM CDT us Suri Perez NP LAB BLOOD ORDERABLES Final R esult Performing Organization Address City/State/[facility] Co de Phone Number [facility] [address] [place] [address] * COLONOSCOPY (03/02/2019 11:50 AM CDT) Anatomical Region Laterality Modality Other Narrative Procedure Note Max Edmond MD - 03/02/2019 11:50 AM CDT ENDOSCOPY LAB Patient Name: Hadley Culver Procedure Date: 03/02/2019 11:50 AM Admit Type: Outpatient Room: [facility] 1 Date of : 1955 Instrument Name: [id number] [...] the bowel preparation wasevaluated using the BBPS (Mereta Bowel Preparation Scale) with scores of: Right [...] 0 Note Initiated On: 03/02/2019 11:50 AM Max Edmond MD ENDOSCOPY PROCEDURES Fin al Result * PSA screen (12/02/2018 10:50 AM PROP MAKING SUPERVISOR) PSA-Total 0.69 <=5.40 ng/mL [facility] Comment: Interpretive Data AGE SEX REFERENCE INTERVAL 0 minutes-150 years Female None 0 minutes-49 years Male None 50-59 years Male 0-3.90 60-69 years Male 0-5.40 70-79 years Male 0-6.20 80-150 years Male 0-6.20 Current interpretive data last revised 2018. Blood specimen (specimen) 12/02/2018 10:50 AM PROP MAKING SUPERVISOR 12/02/2018 11:01 AM PROP MAKING SUPERVISOR Narrative [facility] - 12/02/2018 11:37 AM PROP MAKING SUPERVISOR us Danny Lynn MD LAB BLOOD ORDERABLES Radha megloza Result [facility] [address] Department [place] [address] * CT Abdomen Pelvis W Contrast (12/02/2018 12:33 AM PROP MAKING SUPERVISOR) Anatomical Region Laterality Modality Body N/A Computed Tomogra phy 12/02/2018 10:3 0 AM PROP MAKING SUPERVISOR Addenda Addendum by Norah Buckley MD on 12/02/2018 11:39 AM PROP MAKING SUPERVISOR Rectal wall does appear to be prominent. However, no surrounding soft tissue inflammatory change or abscess is seen. Electronically signed by: Norah Buckley M.D. Impressions 12/02/2018 10:35 AM PROP MAKING SUPERVISOR 1. Hepatomegaly with hepatic steatosis 2. Cholelithiasis 3. Very small hiatal hernia 4. Prominence of the wall the sigmoid colon, likely related to incomplete distention. Associated changes of obstruction or acute inflammatory change is not seen. This report is in agreement with the preliminary report Electronically signed by: Norah Buckley M.D. Narrative 12/02/2018 10:35 AM PROP MAKING SUPERVISOR EXAM: CT abdomen and pelvis with IV [...] by: Norah Buckley M.D. Max Fleming MD IMG CT PROCEDURES Edited Resul t - Final from Last 3 Months or Most Recently Relevant to Health Maintenance Insurance MED[employer]ARE [employer]UT[employer] Member Subscriber Plan / Payer (Ef fective 2022-Present) Name:Hadley Culver Relation to Subscriber:Self Name:Hadley Culver Payer ID:[id number] (NAIC) Type:UHC MEDICARE Address: [place] [id number] MEDICARE SOLUTIONS MEDICARE SOLUTIONS MEDICAL [facility] MEDICARE Address: [facility] [address] [place] [address] Advance Directives For more information, please contact: [phone] * Full Code (Latest Code Status on File) Date Activated Date Inactivated Comments 07/22/2022 4:52 PM 07/23/2022 6:12 PM * Full Code Date Activated Date Inactivated Comments 05/05/2021 6:49 PM 05/07/2021 5:34 PM * Full Code Date Activated Date Inactivated Comments 03/02/2019 11:33 AM 03/02/2019 5:28 PM * Full Code Date Activated Date Inactivated Comments 12/02/2018 3:32 AM 12/04/2018 6:21 PM Care Teams Padding Gluer Relationship Specialty Start Date End Date Katya An DO PCP - General Family Medicine 08/25/20 Alirio Rosas MD Referring Physician Cardiovascular Disease 05/07/21 Marco Gonzalez MD [address] [address] Consulting Physician Orthopedic Surgery 07/23/22
[2024-12-18 10:04] VITALS: BP 149/78; PULSE 80; RESP 16; TEMP 36.4; O2SAT 100; BMI 31.4
[2024-12-18] MEDS: LACTATED RINGERS 1,000 ML 150 ML IV CONT (10:17)
--- NOTE | 2024-12-18 10:38 | P.PNAN_ITS ---
Anes - Initial Pre Proc Eval Procedure: Operation Date: 12/18/24 12:00 Proposed Procedures p Colonoscopy - Neftaly [place] MD Date/Time: 12/18/24 10:38 Surgeon: Neftaly [place] MD Pre Op Diagnosis: Personal history of colon polyps Patient Data Age: 69 Gender: M Height: 1.73 m Weight: 93.9 kg Last Vital Signs Temp 97.5 F L 12/18/24 10:04 Pulse 80 12/18/24 10:04 Resp 16 12/18/24 10:04 BP 149/78 H 12/18/24 10:04 Pulse Ox 100 12/18/24 10:04 O2 Del Method Room Air 12/18/24 10:04 Allergies Allergy/AdvReac Type Severity Reaction Status Date / Time No Known Allergies Allergy Mild Verified 12/18/24 10:02 Home Medications ?Medication ?Instructions ?Recorded ?Confirmed ?Type aspirin 81 mg tablet,delayed 81 mg PO DAILY 05/19/21 12/18/24 History release (Adult Aspirin Regimen) vitamins A,C,B-cxhe-wksmda 4,296 1 cap PO DAILY 08/01/23 12/18/24 History mcg-226 mg-90 mg capsule (PreserVision AREDS) empagliflozin 10 mg tablet 5 mg PO DAILY 10/06/23 12/18/24 History (Jardiance) nitroglycerin 0.6 mg sublingual 0.6 mg sublingual Q5M PRN chest 02/07/24 12/04/24 Rx tablet pain #30 tabs semaglutide 1 mg/dose (4 mg/3 mL) 1 mg (0.75 mL) subcut WEEKLY #3 mL 02/07/24 12/18/24 Rx subcutaneous pen injector (Ozempic) carvedilol 6.25 mg tablet See Rx Instructions .Route 02/13/24 12/18/24 Rx .COMPLEX #200 tabs metformin 500 mg tablet,extended See Rx Instructions .Route 02/13/24 12/18/24 Rx release 24 hr .COMPLEX #200 tabs rosuvastatin 40 mg tablet See Rx Instructions .Route 04/17/24 12/18/24 Rx .COMPLEX #100 tabs olmesartan 40 mg tablet See Rx Instructions .Route 08/17/24 12/18/24 Rx .COMPLEX #100 tabs Vascepa 1 gram capsule (icosapent See Rx Instructions .Route 08/20/24 12/18/24 Rx ethyl) .COMPLEX #400 caps ibuprofen 800 mg tablet See Rx Instructions .Route 10/03/24 12/04/24 Rx .COMPLEX #100 tabs Patient hx anesthesia problems: none Family hx anesthesia problems: none Results Review: All pre-operative results and documents have been reviewed as part of the pre- operative evaluation. [facility] Past Medical History Medical History Diabetes Anxiety Heart attack (~2020) 2 Stents History of heart attack (~2005) Bypass Acute hemorrhoid (~2012) Hernia (~2008) Prediabetes Essential (primary) hypertension Mixed hyperlipidemia Surgical History Surgical History History of coronary artery stent placement x2 Hx of CABG (~2005) Family History Family History Mother Diabetes mellitus Family history of elevated blood lipids Cerebrovascular accident Family history of coronary artery disease Father Hypertension Family history of elevated blood lipids Family history of coronary artery disease Sibling Hypertension Family history of elevated blood lipids Acute myocardial infarction Family history of coronary artery disease Grandparent Cerebrovascular accident Other Family history of cardiovascular disease Social History Social History Smoking packs per day: 0.25 Smoking cigarettes per day: 5.0 Years smoked: 52 Smoking pack-years: 13.00 Smoking status: Current every day smoker Alcohol intake: current Substance use: never Substance use type: does not use Lack of Transportation: No Lack of Food: Never True Current Housing: I Have Housing Concerned About Future Housing: No Difficulty Paying Gas/Electric Bills: No Difficulty Paying for Meds: No Currently Unemployed: No Education: High School Diploma/GED Difficulty w/ Childcare or Family Care: No Anes - Eval Final PreProcedure Day of Procedure 12/18/24 10:38 Patient weight: obese Lungs: normal air movement Airway: Mallampati scale class II Neurological: alert and oriented Last oral intake: >/= 8 hours ASA classification: III Emergent: no Anesthetic plan: proceed Anesthesia type and monitoring: general GIVS and standard monitoring Results Review: All pre-operative results and documents have been reviewed as part of the pre- operative evaluation. HTN, hyperlipidemia, PreDM, active smoker, 1/2 ppd and did smoke at 9 am today, s/p PTCA x 2 2020 at [facility]. Most recent cardiology visit late 2023 w stable cardiac status, pt denies any cp or sob. Informed Consent: The patient's anesthetic plan and its attendant risks and benefits were discussed with the patient/family/POA. Questions were solicited and answers provided to the satisfaction of the patient/family/POA.
--- NOTE | 2024-12-18 10:43 | PM.HPGS ---
History of Present Illness History of Present Illness Consent: Risks, benefits, and alternatives have been discussed and questions answered. Patient agrees to proceed with procedure. Chief complaint: Personal history of colon polyps Narrative: Hadley Culver is a 69 year old male with colon polyp in 2019 Review of Systems Review of Systems: All systems reviewed & are unremarkable except as noted in HPI and below PMFSH Past Medical History Medical History Diabetes Anxiety Heart attack (~2020) 2 Stents History of heart attack (~2005) Bypass Acute hemorrhoid (~2012) Hernia (~2008) Prediabetes Essential (primary) hypertension Mixed hyperlipidemia Surgical History Surgical History History of coronary artery stent placement x2 Hx of CABG (~2005) Family History Family History Mother Diabetes mellitus Family history of elevated blood lipids Cerebrovascular accident Family history of coronary artery disease Father Hypertension Family history of elevated blood lipids Family history of coronary artery disease Sibling Hypertension Family history of elevated blood lipids Acute myocardial infarction Family history of coronary artery disease Grandparent Cerebrovascular accident Other Family history of cardiovascular disease Social History Social History Smoking packs per day: 0.25 Smoking cigarettes per day: 5.0 Years smoked: 52 Smoking pack-years: 13.00 Smoking status: Current every day smoker Alcohol intake: current Substance use: never Substance use type: does not use Lack of Transportation: No Lack of Food: Never True Current Housing: I Have Housing Concerned About Future Housing: No Difficulty Paying Gas/Electric Bills: No Difficulty Paying for Meds: No Currently Unemployed: No Education: High School Diploma/GED Difficulty w/ Childcare or Family Care: No Meds Home Medications and Allergies Home Medications ?Medication ?Instructions ?Recorded ?Confirmed ?Type aspirin 81 mg tablet,delayed 81 mg PO DAILY 05/19/21 12/18/24 History release (Adult Aspirin Regimen) vitamins A,C,D-axpk-xlticq 4,296 1 cap PO DAILY 08/01/23 12/18/24 History mcg-226 mg-90 mg capsule (PreserVision AREDS) empagliflozin 10 mg tablet 5 mg PO DAILY 10/06/23 12/18/24 History (Jardiance) nitroglycerin 0.6 mg sublingual 0.6 mg sublingual Q5M PRN chest 02/07/24 12/04/24 Rx tablet pain #30 tabs semaglutide 1 mg/dose (4 mg/3 mL) 1 mg (0.75 mL) subcut WEEKLY #3 mL 02/07/24 12/18/24 Rx subcutaneous pen injector (Ozempic) carvedilol 6.25 mg tablet See Rx Instructions .Route 02/13/24 12/18/24 Rx .COMPLEX #200 tabs metformin 500 mg tablet,extended See Rx Instructions .Route 02/13/24 12/18/24 Rx release 24 hr .COMPLEX #200 tabs rosuvastatin 40 mg tablet See Rx Instructions .Route 04/17/24 12/18/24 Rx .COMPLEX #100 tabs olmesartan 40 mg tablet See Rx Instructions .Route 08/17/24 12/18/24 Rx .COMPLEX #100 tabs Vascepa 1 gram capsule (icosapent See Rx Instructions .Route 08/20/24 12/18/24 Rx ethyl) .COMPLEX #400 caps ibuprofen 800 mg tablet See Rx Instructions .Route 10/03/24 12/04/24 Rx .COMPLEX #100 tabs Allergies Allergy/AdvReac Type Severity Reaction Status Date / Time No Known Allergies Allergy Mild Verified 12/18/24 10:02 Vital Signs Vital Signs - 24 hr 12/18/24 10:04 Temperature 97.5 F L Pulse Rate 80 Respiratory Rate 16 Blood Pressure 149/78 H Pulse Oximetry 100 Oxygen Delivery Room Air Exam Const: General: comfortable and no acute distress HENMT: Face/Nose/Sinus: Normal nares present Eyes: General: appearance normal, both eyes and all related structures Neck: Neck: no JVD Resp: Auscultation: clear to auscultation bilaterally Cardio: Rate: regular rate Rhythm: regular rhythm GI: Inspection: non-distended GI Palp: Yes Soft to palpation Skin: General skin exam: normal color Neuro: General: gait normal Speech: normal speech Extrem: General: normal to inspection Psych: Mental Status: mental status grossly normal Assessment and Plan Assessment and plan (1) History of colon polyps: Code(s): Z86.010 - Personal history of colon polyps Status: Acute Assessment and Plan: colonoscopy
[2024-12-18 10:58] VITALS: BP 74/34; PULSE 84; RESP 20; O2SAT 97
[2024-12-18 11:08] VITALS: BP 118/62; PULSE 70; RESP 18; O2SAT 100
[2024-12-18 11:18] VITALS: BP 124/63; PULSE 66; RESP 18; O2SAT 99
[2024-12-19 06:40] LABS: Glucose Point of Care 115 mg/dl (65-105)
== END 2024-12-18 11:30 | disposition home or self-care (01) ==
PROVIDERS: PCP Family Medicine; Referring Provider Nurse Practitioner; Visit Provider Internal Medicine Gastroenterology
PROC: 0DJD8ZZ Inspection of Lower Intestinal Tract, Via Natural or Artificial Opening Endoscopic (ICD-10-PCS; CPT 45378; principal; 2024-12-18 12:00)
DX: Z12.11 Encounter for screening for malignant neoplasm of colon (principal); K64.8 Other hemorrhoids; K57.30 Diverticulosis of large intestine without perforation or abscess without bleeding; E11.9 Type 2 diabetes mellitus without complications; I10 Essential (primary) hypertension; F41.9 Anxiety disorder, unspecified; I25.2 Old myocardial infarction; E78.2 Mixed hyperlipidemia; F17.210 Nicotine dependence, cigarettes, uncomplicated; E66.9 Obesity, unspecified; Z68.31 Body mass index [BMI] 31.0-31.9, adult; Z79.82 Long term (current) use of aspirin; Z79.84 Long term (current) use of oral hypoglycemic drugs; Z79.85 Long-term (current) use of injectable non-insulin antidiabetic drugs; Z79.1 Long term (current) use of non-steroidal anti-inflammatories (NSAID); Z98.890 Other specified postprocedural states; Z95.5 Presence of coronary angioplasty implant and graft; Z95.1 Presence of aortocoronary bypass graft; Z86.0100 Personal history of colon polyps, unspecified; Z82.49 Family history of ischemic heart disease and other diseases of the circulatory system
CPT/HCPCS: G0105; 82948; J2003; J2704; J7120

== ENCOUNTER 2025-01-01 10:25 | Outpatient (CLI) | payer MEDICARE, SELFPAY | END 2025-01-01 10:26 | disposition home or self-care (01) | LOC: GOSHIMG 10:25 | PROVIDERS: PCP Family Medicine; Visit Provider Nurse Practitioner | DX: Z12.2 Encounter for screening for malignant neoplasm of respiratory organs (principal); F17.210 Nicotine dependence, cigarettes, uncomplicated | CPT/HCPCS: 71271 ==

== ENCOUNTER 2025-02-14 00:29 | Emergency (ER) | payer MEDICARE, SELFPAY ==
--- NOTE | ~2025-02-14 | CT_ITS ---
Noncontrast CT scan of the lumbar spine CLINICAL HISTORY: Pain TECHNIQUE: Axial noncontrast imaging of the lumbar spine was performed. Sagittal and coronal reformat kenny images were constructed. Dose reduction technique was used on this scan by utilizing automated ex posure control and iterative reconstruction technique. The dose-length product (DLP) was 962.51 mGy-c m. FINDINGS: There is no fracture or subluxation of lumbar spine. Vertebral bodies maintain normal heigh t and alignment. At L1-L2, there is no disc bulge or herniation. There is minimal facet arthropathy. No central canal stenosis or definite neural foraminal narrowing. At L2-L3, there is no significant disc bulge or herniation. No spinal canal stenosis. Probable modera te bilateral neural foraminal narrowing. At L3-L4, there is disc bulge and mild facet arthropathy. Possible minimal central canal stenosis. Th ere is moderate to advanced bilateral neural foraminal narrowing. At L4-L5, there is mild disc bulge and minimal facet arthropathy. No central canal stenosis. Probable moderate bilateral neural foraminal narrowing. At L5-S1, there is disc bulge and severe facet arthropathy. No definite canal stenosis. There is frida re bilateral neural foraminal narrowing. Paravertebral soft tissues are unremarkable. Impression: Moderate degenerative spondylosis overall, with multilevel neural foraminal narrowing, worst at L5-S1 . Reviewed, dictated and finalized at [facility]. Impression: Moderate degenerative spondylosis overall, with multilevel neural foraminal stephanie rowing, worst at L5-S1.
--- OUTSIDE RECORDS SUMMARY | 2025-02-14 00:31 | XMS_ITS | Clinical Summary ---
Author Organization [facility] [place] [address] Address [address] [place] [address] Care Team Providers Care Drop Wire Aliner Name Role Phone Katya An DO Primary Care Provider [phone]- [phone] Alirio Rosas MD Unavailable Marco Gonzalez MD [...] (05/27/2022): Added automatically from request for surgery [id number] Hyperlipidemia 05/05/2021 Type 2 diabetes mellitus 05/05/2021 Myocardial infarction 05/05/2021 Special screening for malignant neoplasms, colon 02/09/2019 Overview (02/09/2019): Added automatically from request for surgery [id number] 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 Rectal pain [...] on file Legal Sex Male 3:44 AM FINAL INSTALLER INSPECTOR Gender Identity Not on file Sexual Orientation Not on file Obstetrics History Last Filed Vital Signs Vital Sign Reading Time Taken Comments Blood Pressure 126/74 11/08/2024 10:57 AM FINAL INSTALLER INSPECTOR Pulse 53 11/08/2024 10:57 AM FINAL INSTALLER INSPECTOR Temperature 36.3 C (97.3 F) 07/23/2022 3:45 AM CDT Respiratory Rate 18 07/23/2022 3:45 AM CDT Oxygen Saturation 96% 11/08/2024 10:57 AM FINAL INSTALLER INSPECTOR Inhaled Oxygen Concentration - - Weight 89.4 [...] Fall Risk Assessment 07/23/2023 07/23/2022 Covid-19 Vaccine ( - 2023-2 5 season) 2024 04/13/2022, 08/11/2021, 12/23/2020, Additional history exists Influenza Vaccine (Season Ended) 2025 09/28/2021, 08/11/2020, 10/15/2019, Additional history exists Lipid Panel 07/12/2025 07/12/2024, 07/01, 05/11/2022, Additional history exists DTaP/Tdap/Td Vaccine (2 - Td or Tdap) 10/03/2028 10/03/2018 Colon Cancer Screening-Colonoscopy 03/02/2029 03/02/2019 Colon Cancer Screening-CT Colonography Discontinued 03/02/2019 Colon Cancer Screening-DNA Stool Discontinued 05/03/20 19 Colon Cancer Screening-FIT Discontinued 03/02/2019 Colon Cancer Screening-Sigmoidoscopy Discontinued 03/02/2019 Pneumococcal vaccine 65+ Completed 06/10/2022, 05/01 Medical Devices Implanted Type Area Stem Dryer Maintainer Device Identifier Shelf Expiration Date Model / Serial / Lot [employer] Juanis [id number] Synergy 3mm 16mm 144cm Radiopaque 1 Access Port Inflation Lumen - S0 - [id number] Implanted:Qty: 1 on 05/06/2021 by Alirio Rosas MD at [facility] Stent [employer] Juanis 07/14/2022 [id number] 300 / 0 / [id number] Description:Circumflex [employer]is [id number] Synergy 3.5mm 38mm 144cm Radiopaque 1 Access Port Inflation Lumen - S0 - [id number] Implanted:Qty: 1 on 05/06/2021 by Alirio Rosas MD at [facility] Stent [employer] 09/15/2022 [id number] 350 / 0 / [id number] Description:Circumflex [employer] Shell Acetabular Trident Ii Tritanium F Od56mm Hip 5 Screw Hole Cluster Sterile 702-04-56f - [id number] Implanted:Qty: 1 on 07/22/2022 by Marco Gonzalez MD at [facility] Left: Hip [employer] [id number] 04/09/2027 702-04-56F / / [id number] [employer] Screw Bone Trident Ii L50mm Od6.5mm Low Profile Hexagonal Sterile 1824-8962 - [id number] Implanted:Qty: 1 on 07/22/2022 by Marco Gonzalez MD at [facility] Left: Hip [employer] [id number] 05/05/2027 6800-7122 / / [id number] [employer] Insert Trident 0deg X3 36mm Id 723-00-36f - [id number] Implanted:Qty: 1 on 07/22/2022 by Marco Gonzalez MD at [facility] Left: Hip [employer] 05/16/2027 723-00-36F / / [id number] [employer] Accolade 108mm 35mm Modular Hip 127d 5 Taper Stem Femoral Sterile [id number] - [id number] Implanted:Qty: 1 on 07/22/2022 by Marco Gonzalez MD at [facility] Left: Hip [employer] [id number] 05/31/2027 [id number] / / [id number] [employer] V40 36mm Anatomic Hip -2.5mm Offset Taper Head Femoral Biolox 6570-0-436 - [id number] Implanted:Qty: 1 on 07/22/2022 by Marco Gonzalez MD at [facility] Left: Hip [employer] [id number] 08/02/2025 6570-0-436 / / [id number] Procedures Procedure Name Priority Date/Time Associated Diagnosis Comments POCT LIPID PANEL Routine 07/12/2024 11:3 0 AM CDT Hyperlipidemia, unspecified hyperlipidemia type EGFR Routine 07/09/2022 2:32 PM CDT Preop testing HEMOGLOBIN A1C Routine 07/09/2022 2:32 PM CDT Preop testing COLONOSCOPY 03/02/2019 11:50 AM CDT PSA SCREEN STAT 12/02/2018 10:50 AM FINAL INSTALLER INSPECTOR CT ABDOMEN PELVIS W CONTRAST ED 12/02/2018 12:33 AM FINAL INSTALLER INSPECTOR from Last 3 Months or Most Recently [...] PM CDT) eGFR 77 mL/min/1. 73 m2 [facility] Comment: Interpretive Data Reference Interval Normal >/= [...] NP LAB BLOOD ORDERABLES Final R esult [facility] [address] [place] [address] * (ABNORMAL) Hemoglobin A1c (07/09/2022 2:32 PM CDT) Hgb A1C 5.8(H) 4.0 - 5.6 % [facility] Estimated Average Glucose 120 mg/dL [facility] Comment: The ADA recommends reporting an estimated Average Glucose (eAG) with all Hemoglobin A1c results using the equation derived from a study of 507 normal and diabetic adults. Minority populations were underrepresented and children were not included. (Diabetes Care 31:5994-3363, 2008). The eAG is not equivalent to a fasting glucose. Blood 07/09/2022 2:32 PM CDT 07/09/2022 2:32 PM CDT us Suri Perez NP LAB BLOOD ORDERABLES Final R esult [facility] [address] Department [place] [address] * COLONOSCOPY (03/02/2019 11:50 AM CDT) Anatomical Region Laterality Modality Other Narrative Procedure Note Max Edmond MD - 03/02/2019 11:50 AM CDT ENDOSCOPY LAB Patient Name: Hadley Culver Procedure Date: 03/02/2019 11:50 AM Admit Type: Outpatient Room: [facility] Date of : 1955 Instrument [...] the bowel preparation wasevaluated using the BBPS ([place] Bowel Preparation Scale) with scores of: Right [...] Result * PSA screen (12/02/2018 10:50 AM FINAL INSTALLER INSPECTOR) PSA-Total 0.69 <=5.40 ng/mL [facility] Comment: Interpretive Data AGE SEX REFERENCE INTERVAL 0 minutes-150 years Female None 0 minutes-49 years Male None 50-59 years Male 0-3.90 60-69 years Male 0-5.40 70-79 years Male 0-6.20 80-150 years Male 0-6.20 Current interpretive data last revised 2018. Blood specimen (specimen) 12/02/2018 10:50 AM FINAL INSTALLER INSPECTOR 12/02/2018 11:01 AM FINAL INSTALLER INSPECTOR Narrative [facility] - 12/02/2018 11:37 AM FINAL INSTALLER INSPECTOR us Danny Lynn MD LAB BLOOD ORDERABLES Radha l Result [facility] [address] Department [place] [address] * CT Abdomen Pelvis W Contrast (12/02/2018 12:33 AM FINAL INSTALLER INSPECTOR) Anatomical Region Laterality Modality Body N/A Computed Tomogra phy 12/02/2018 10:3 0 AM FINAL INSTALLER INSPECTOR Addenda Addendum by Norah Buckley MD on 12/02/2018 11:39 AM FINAL INSTALLER INSPECTOR Rectal wall does appear to be prominent. However, no surrounding soft tissue inflammatory change or abscess is seen. Electronically signed by: Norah Buckley M.D. Impressions 12/02/2018 10:35 AM FINAL INSTALLER INSPECTOR 1. Hepatomegaly with hepatic steatosis 2. Cholelithiasis 3. Very small hiatal hernia 4. Prominence of the wall the sigmoid colon, likely related to incomplete distention. Associated changes of obstruction or acute inflammatory change is not seen. This report is in agreement with the preliminary report Electronically signed by: Norah Buckley M.D. Narrative 12/02/2018 10:35 AM FINAL INSTALLER INSPECTOR EXAM: CT abdomen and pelvis with IV [...] Most Recently Relevant to Health Maintenance Insurance [facility] MEDICARE ADVANTAGE [facility] MEDICARE ADVANTAGE [facility] MEDICARE ADVANTAGE Advance Directives For more information, please contact: [phone] * Full Code (Latest Code Status on File) Date Activated Date Inactivated Comments 07/22/2022 4:52 PM 07/23/2022 6:12 PM * Full Code Date Activated Date Inactivated Comments 05/05/2021 6:49 PM 05/07/2021 5:34 PM * Full Code Date Activated Date Inactivated Comments 03/02/2019 11:33 AM 03/02/2019 5:28 PM * Full Code Date Activated Date Inactivated Comments 12/02/2018 3:32 AM 12/04/2018 6:21 PM Care Teams Drop Wire Aliner Relationship Specialty Start Date End Date Katya An PCP - General Family Medicine 08/25/20 Alirio Rosas MD Referring Physician Cardiovascular Disease 05/07/21 Marco Gonzalez MD [address] [address] Consulting Physician Orthopedic Surgery 07/23/22
--- OUTSIDE RECORDS SUMMARY | 2025-02-14 00:31 | XMS_ITS | Referral Summary ---
Author Organization [facility] [address] Address [address] [place] [address] Care Team Providers Care Bench Worker Hollow Handle Name Role Phone Katya An Primary Care Provider +1- [phone] Alirio Rosas MD Unavailable Marco Gonzalez MD [...] (05/27/2022): Added automatically from request for surgery [id number] Hyperlipidemia 05/05/2021 Type 2 diabetes mellitus 05/05/2021 Myocardial infarction 05/05/2021 Special screening for malignant neoplasms, colon 02/09/2019 Overview (02/09/2019): Added automatically from request for surgery [id number] 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 Rectal pain [...] on file Legal Sex Male 3:44 AM SENIOR GAME DEVELOPER Gender Identity Not on file Sexual Orientation Not on file Last Filed Vital Signs Vital Sign Reading Time Taken Comments Blood Pressure 126/74 11/08/2024 10:57 AM SENIOR GAME DEVELOPER Pulse 53 11/08/2024 10:57 AM SENIOR GAME DEVELOPER Temperature 36.3 C (97.3 F) 07/23/2022 3:45 AM CDT Respiratory Rate 18 07/23/2022 3:45 AM CDT Oxygen Saturation 96% 11/08/2024 10:57 AM SENIOR GAME DEVELOPER Inhaled Oxygen Concentration - - Weight 89.4 kg (197 lb) 07/12/2024 11:26 AM CDT Height 172.7 cm (5' 8 ) 07/12/2024 11:26 AM CDT Body Mass Index 29.95 07/12/2024 11:26 AM CDT Plan of Treatment Not on file Medical Devices Implanted Type Area Drum Sander Setter Device Identifier Shelf Expiration Date Model / Serial / Lot [employer] [id number] Synergy 3mm 16mm 144cm Radiopaque 1 Access Port Inflation Lumen - S0 - [id number] Implanted:Qty: 1 on 05/06/2021 by Alirio Rosas MD at [facility] Stent [employer] Juanis 07/14/2022 [id number] 300 / 0 / [id number] Description:Circumflex [employer] [id number] Synergy 3.5mm 38mm 144cm Radiopaque 1 Access Port Inflation Lumen - S0 - [id number] Implanted:Qty: 1 on 05/06/2021 by Alirio Rosas MD at [facility] Stent [employer] 09/15/2022 [id number] 350 / 0 / [id number] Description:Circumflex [employer] Shell Acetabular Trident Ii Tritanium F Od56mm Hip 5 Screw Hole Cluster Sterile 702-04-56f - [id number] Implanted:Qty: 1 on 07/22/2022 by Marco Gonzalez MD at [facility] Left: Hip [employer] [id number] 04/09/2027 702-04-56F / / [id number] [employer] Screw Bone Trident Ii L50mm Od6.5mm Low Profile Hexagonal Sterile 3203-5988 - [id number] Implanted:Qty: 1 on 07/22/2022 by Marco Gonzalez MD at [facility] Left: Hip [employer] [id number] 05/05/2027 1279-3101 / / [id number] [employer] Insert Trident 0deg X3 36mm Id 723-00-36f - [id number] Implanted:Qty: 1 on 07/22/2022 by Marco Gonzalez MD at [facility] Left: Hip [employer] 05/16/2027 723-00-36F / / [id number] [employer] Accolade 108mm 35mm Modular Hip 127d 5 Taper Stem Femoral Sterile [id number] - [id number] Implanted:Qty: 1 on 07/22/2022 by Marco Gonzalez MD at [facility] Left: Hip [employer] [id number] 05/31/2027 [id number] / / [id number] [employer] V40 36mm Anatomic Hip -2.5mm Offset Taper Head Femoral Biolox 6570-0-436 - [id number] Implanted:Qty: 1 on 07/22/2022 by Marco Gonzalez MD at [facility] Left: Hip [employer] [id number] 08/02/2025 6570-0-436 / / [id number] Procedures Procedure Name Priority Date/Time Associated Diagnosis Comments POCT LIPID PANEL Routine 07/12/2024 11:3 0 AM CDT Hyperlipidemia, unspecified hyperlipidemia type EGFR Routine 07/09/2022 2:32 PM CDT Preop testing HEMOGLOBIN A1C Routine 07/09/2022 2:32 PM CDT Preop testing COLONOSCOPY 03/02/2019 11:50 AM CDT PSA SCREEN STAT 12/02/2018 10:[address] ABDOMEN PELVIS W CONTRAST ED 12/02/2018 12:33 AM SENIOR GAME DEVELOPER from Last 3 Months or Most Recently [...] PM CDT) eGFR 77 mL/min/1. 73 m2 [facility] Comment: Interpretive Data Reference Interval Normal >/= [...] 2:32 PM CDT 07/09/2022 2:32 PM CDT Suri Perez NP LAB BLOOD ORDERABLES Final R esult Performing Organization Address [facility] Co de Phone Number [facility] [address] [place] [address] * (ABNORMAL) Hemoglobin A1c (07/09/2022 2:32 PM CDT) [facility] Hgb A1C 5.8(H) 4.0 - 5.6 % [facility] Estimated Average Glucose 120 mg/dL [facility] Comment: The ADA recommends reporting an estimated Average Glucose (eAG) with all Hemoglobin A1c results using the equation derived from a study of 507 normal and diabetic adults. Minority populations were underrepresented and children were not included. (Diabetes Care 31:4736-4688, 2008). The eAG is not equivalent to a fasting glucose. Blood 07/09/2022 2:32 PM CDT 07/09/2022 2:32 PM CDT Suri Perez NP LAB BLOOD ORDERABLES Final R esult Performing Organization Address City/[facility] Co de Phone Number [facility] [address] Department [place] [address] * COLONOSCOPY (03/02/2019 11:50 AM CDT) Anatomical Region Laterality Modality Other Narrative Procedure Note Max Edmond MD - 03/02/2019 11:50 AM CDT ENDOSCOPY LAB Patient Name: Hadley Culver Procedure Date: 03/02/2019 11:50 AM Admit Type: Outpatient Room: [facility] Date of : 1955 Instrument Name: [id number] [...] the bowel preparation wasevaluated using the BBPS ([place] Bowel Preparation Scale) with scores of: Right [...] Result * PSA screen (12/02/2018 10:50 AM SENIOR GAME DEVELOPER) PSA-Total 0.69 <=5.40 ng/mL [facility] Comment: Interpretive Data AGE SEX REFERENCE INTERVAL 0 minutes-150 years Female None 0 minutes-49 years Male None 50-59 years Male 0-3.90 60-69 years Male 0-5.40 70-79 years Male 0-6.20 80-150 years Male 0-6.20 Current interpretive data last revised 2018. Blood specimen (specimen) 12/02/2018 10:50 AM SENIOR GAME DEVELOPER 12/02/2018 11:01 AM SENIOR GAME DEVELOPER Narrative [facility] - 12/02/2018 11:37 AM SENIOR GAME DEVELOPER us Danny Lynn MD LAB BLOOD ORDERABLES Radha l Result [facility] [address] Department [place] [address] * CT Abdomen Pelvis W Contrast (12/02/2018 12:33 AM SENIOR GAME DEVELOPER) Anatomical Region Laterality Modality Body N/A Computed Tomogra phy 12/02/2018 10:3 0 AM SENIOR GAME DEVELOPER Addenda Addendum by Norah Buckley MD on 12/02/2018 11:39 AM SENIOR GAME DEVELOPER Rectal wall does appear to be prominent. However, no surrounding soft tissue inflammatory change or abscess is seen. Electronically signed by: Norah Buckley M.D. Impressions 12/02/2018 10:35 AM SENIOR GAME DEVELOPER 1. Hepatomegaly with hepatic steatosis 2. Cholelithiasis 3. Very small hiatal hernia 4. Prominence of the wall the sigmoid colon, likely related to incomplete distention. Associated changes of obstruction or acute inflammatory change is not seen. This report is in agreement with the preliminary report Electronically signed by: Norah Buckley M.D. Narrative 12/02/2018 10:35 AM SENIOR GAME DEVELOPER EXAM: CT abdomen and pelvis with IV [...] Most Recently Relevant to Health Maintenance Insurance [id number] MEDICARE ADVANTAGE [facility] MEDICARE ADVANTAGE [facility] MEDICARE ADVANTAGE Advance Directives For more information, please contact: [phone] * Full Code (Latest Code Status on File) Date Activated Date Inactivated Comments 07/22/2022 4:52 PM 07/23/2022 6:12 PM * Full Code Date Activated Date Inactivated Comments 05/05/2021 6:49 PM 05/07/2021 5:34 PM * Full Code Date Activated Date Inactivated Comments 03/02/2019 11:33 AM 03/02/2019 5:28 PM * Full Code Date Activated Date Inactivated Comments 12/02/2018 3:32 AM 12/04/2018 6:21 PM Care Teams Bench Worker Hollow Handle Relationship Specialty Start Date End Date Katya An DO PCP - General Family Medicine 08/25/20 Alirio Rosas MD Referring Physician Cardiovascular Disease 05/07/21 Marco Gonzalez MD [address] [address] Consulting Physician Orthopedic Surgery 07/23/22
--- OUTSIDE RECORDS SUMMARY | 2025-02-14 00:32 | XMS_ITS | Continuity of Care Document ---
Author Organization [facility] Address [address] [place] [address] Phone Care Team Providers Care Scientific Associate Name Role Phone Arsen RINCONALLISON MARKSRavi Unavailable [...] Date Provider Providers Copied on Encounter [facility], [address], [id number], [place] tel:[phone] [facility] left hip (chief complaint) Pain in left hipPresence of left artificial hip joint 2 Arsen Rodrigues. [address], [id number] , [place]. tel: [phone] Referring Provider: Marco Vera, [address] [place] [address], [place], [address]. tel:[phone] [facility], [address], [id number], [place] tel:[phone] [facility] No Information 2 Arsen Rodrigues. [address] [address], [place], [place], [id number] , [place]. tel:[phone] [facility], [address], [id number], [place] tel:[phone] [facility] left hip (chief complaint) Pain in left hipLumbago NOSPresence of left artificial hip joint 2 Arsen Rodrigues. [address], [id number] , [place]. tel: [phone] Referring Provider: Ravi Espinosa, [address] [address], [place], [address]. tel:[phone] [facility], [address], [id number], [place] tel:[phone] [facility] Unilateral primary osteoarthritis, left hip 2 Lisa Andrei er. [address] [facility], [address], [place], [place], [id number] , [place]. tel:[phone] [facility], [address] [facility], [place], [place], [id number], [place] [phone] [facility] Unilateral primary osteoarthritis, left hip 2 Lisa Andrei er. [address] [facility], [address], [place], [place], [id number] , [place]. tel:[phone] Office/outpa tient visit,est, mod [facility], [address] [facility] [address], [place], [place], [id number], [place] [phone] [facility] Left Hip (chief complaint) Pain in left hipUnilateral primary osteoarthritis, left hip 2 Lisa [place]. [address] [place] [address], [facility] [address], [place], [place], [id number] , [place]. tel:[phone] Referring Provider: Marco Vera, [address] [place] [address] [address], [place], [address]. tel:[phone] [facility], [address] [facility] [address], [place], [place], [id number], [place] tel:[phone] [facility] Pain in left shoulderPain in right shoulder 2 [facility]. [address] [facility], [address], [place], [place], [id number] , [place]. tel:[phone] Referring Provider: Owen Sigala, [address] [facility] [address], [place], [address]. tel:[phone] [facility], [address] [facility] [address], [place], [place], [id number], [place] tel:[phone] [facility] Pain in left shoulder 2 [facility] [address] [facility], [address], [place], [place], [id number] , [place]. [phone] Referring Provider: Owen Sigala, [facility] [address], [place], [address]. tel:[phone] Office/outpa tient visit,new, [facility], [address] [facility], [place], [place], [id number], [place] tel:[phone] [facility] Bilateral shoulders (chief complaint) Pain in left shoulderPain in right shoulderCarpal tunnel syndrome, left upper limbCarpal tunnel syndrome, right upper limbIncomplete rotator cuff rupture of left shoulder, not specified as traumaticIncomp lete rotator cuff rupture of right shoulder, not specified as traumaticBody mass index (BMI) 31.0-31.9, adult 2 Charis Weaver. [address] [place] [address], [address], [place], [address], [place]. tel:[phone] Referring Provider: Owen Sigala, [address] [place] [address] [address], [place], [address]. tel:[phone] Family History Family Member Type Diagnosis Age At Onset Brother Problem (finding) Heart Disease Mother Problem (finding) Heart Disease Father Problem (finding) Heart Disease Immunizations Vaccine Date Status Comments influenza, injectable, quadrivalent, (3 years or older) administered Note: per patient ; Source: Source Unspecified Payers Payer name Insurance type Covered constitution party ID Authoriza tion(s) AARP Medicare Advantage HMO PPO CI [id number] Social History Type Description Quantity Date Captured [...] range of motion. Symptoms are improved with eaks-atm-itwxlpf medication such as ibuprofen, . And Tylenol. [...] he does have a history of an [place] last year. He saw his Shuttle Veneering Supervisor yesterday and has been cleared. He is [...] surgery would need to be performed at [facility]. We will proceed through a posterior lateral [...] program. He may use rest, ice, elevation, xyaw-yta-nzymosh pain medications and NSAIDs for pain and [...] any questions or concerns. Dictation completed with baseclick Practice Edition software, grammatical variances and spelling errors may inadvertently occur Patient Care Teams Name Effective Dates (start - stop) Status Members No Information
[2025-02-14 00:36] VITALS: BP 131/64; PULSE 85; RESP 15; TEMP 36.6; O2SAT 97
--- NOTE | 2025-02-14 01:13 | ED_ITS ---
HPI - Back Pain/Injury General Chief Complaint: Back Pain/Injury Stated Complaint: back pain Time Seen by Provider: 02/14/25 01:02 History of Present Illness HPI Narrative: Patient is a 69-year-old male who presents to the emergency department this evening complaining of left lower back pain over his SI region. Patient states that this pain has been ongoing since Tuesday of this week, denies any recent falls or trauma or any injuries. Patient states that he normally has pain on the weight SI region radiating down his right leg and has seen pain management in the past secondary to this pain. Patient states that it 2021 he had an ablation which did help with his symptoms. Patient states that now the pain has traveled to his left side and feels as though it is worse than how it was on the right. Patient denies any focal weakness, numbness and tingling, bowel or bladder incontinence. No additional symptoms or concerns at this time. Related Data Home Medications ?Medication ?Instructions ?Recorded ?Confirmed ?Last Taken ?Type aspirin 81 mg tablet,delayed 81 mg PO DAILY 05/19/21 02/12/25 12/17/24 History release (Adult Aspirin Regimen) vitamins A,C,L-qebe-zfspfs 4,296 1 cap PO DAILY 08/01/23 02/12/25 12/17/24 History mcg-226 mg-90 mg capsule (PreserVision AREDS) empagliflozin 10 mg tablet 5 mg PO DAILY 10/06/23 02/12/25 12/17/24 History (Jardiance) clobetasol 0.05 % topical ointment topical 02/12/25 02/12/25 Unknown History fluorouracil 5 % topical cream applic topical 02/12/25 02/12/25 Unknown History Allergies Allergy/AdvReac Type Severity Reaction Status Date / Time No Known Allergies Allergy Mild Verified 02/14/25 00:30 Review of Systems 2 Review of Systems: All systems are reviewed and are negative unless stated otherwise in the HPI. PMFSH Past Medical History Medical History Diabetes Anxiety Heart attack (~2020) 2 Stents History of heart attack (~2005) Bypass Acute hemorrhoid (~2012) Hernia (~2008) Prediabetes Essential (primary) hypertension Mixed hyperlipidemia Surgical History Surgical History History of coronary artery stent placement x2 Hx of CABG (~2005) Family History Family History Mother Diabetes mellitus Family history of elevated blood lipids Cerebrovascular accident Family history of coronary artery disease Father Hypertension Family history of elevated blood lipids Family history of coronary artery disease Sibling Hypertension Family history of elevated blood lipids Acute myocardial infarction Family history of coronary artery disease Grandparent Cerebrovascular accident Other Family history of cardiovascular disease Social History Social History Smoking packs per day: 0.25 Smoking cigarettes per day: 5.0 Years smoked: 52 Smoking pack-years: 13.00 Smoking status: Current every day smoker Alcohol intake: current Drinks per week: 7 Alcohol use details: Has nathalie's in coffee every morning Substance use: never Substance use type: does not use Lack of Transportation: No Lack of Food: Never True Current Housing: I Have Housing Concerned About Future Housing: No Difficulty Paying Gas/Electric Bills: No Difficulty Paying for Meds: No Currently Unemployed: No Education: High School Diploma/GED Difficulty w/ Childcare or Family Care: No Living arrangements: with family Spiritual care concerns: No Exam 2 Narrative: General: Alert, awake, afebrile, in no acute distress. HEENT: PERRL, no rhinorrhea, no post nasal drip, oropharynx clear. Neck: Trachea midline, no JVD, no lymphadenopathy. Cardiovascular: Regular rate and rhythm, no murmurs, rubs or gallops, no peripheral edema. Respiratory: Clear to auscultation bilaterally, no tachypnea, no wheezing, no rhonchi, no rubs, no respiratory distress. Abdomen: Soft, nontender, nondistended, no rebound, no guarding, no peritoneal signs. Back: No midline tenderness to palpation over the cervical, thoracic or lumbar spine, point tenderness to palpation over the left SI joint. Musculoskeletal: No joint swelling or deformity, normal muscle tone. Skin: No rashes or petechia, no signs of infection. Psychiatric: Alert and oriented, normal behavior and judgment for situation. Neurological: Alert and oriented to person, place, and time. Follows all commands. No focal deficits, speech is clear and fluent. Course Vital Signs Vital signs: Vital Signs Temperature 97.8 F 02/14/25 00:36 Pulse Rate 85 02/14/25 00:36 Respiratory Rate 15 02/14/25 00:36 Blood Pressure 131/64 02/14/25 00:36 Pulse Oximetry 97 02/14/25 00:36 Oxygen Delivery Room Air 02/14/25 00:36 Temperature 97.8 F 02/14/25 00:36 Pulse Rate 85 02/14/25 00:36 Respiratory Rate 15 02/14/25 00:36 Blood Pressure 131/64 02/14/25 00:36 Pulse Oximetry 97 02/14/25 00:36 Oxygen Delivery Room Air 02/14/25 00:36 MDM - Back Pain/Injury MDM Narrative Medical decision making narrative: The patient was evaluated by myself in the emergency department. History is obtained from patient who is an independent historian and physical exam was performed. External medical records were reviewed at this time. Patient was administered an oral Matthews 5-325 mg, 15 mg of IM Toradol and a Lidoderm patch with significant improvement of patient's pain. Laboratory results obtained revealing no acute process. Urinalysis unremarkable. Imaging studies obtained included CT lumbar spine without IV contrast which was independently interpreted by me revealing: Moderate bilateral foraminal stenosis L3-L4 and L4-L5 with severe bilateral foraminal stenosis at the L5-S1 level, no significant central canal stenosis. Differential diagnosis considerations include spinal stenosis, herniated disc, musculoskeletal strain. Comorbidities impacting this visit include history of chronic back pain. I have evaluated and discussed social determinants of health with the patient that could potentially impact subsequent diagnosis and treatment plans. On repeat assessment of the patient, reevaluation revealed that the patient is doing well and is in no acute distress. Patient symptoms have improved since he arrived to our emergency department. Repeat vital signs were all reviewed and noted to be stable. Differential diagnosis and treatment plan were discussed with the patient at bedside. Patient agrees with discussion and after shared medical decision making agrees with discharge. All questions were answered to the patient's satisfaction. Patient will follow up with neurosurgery in 3-5 days. Script for Matthews and Lidoderm patches were sent to patient's pharmacy to use as needed for his back pain until he is seen by neurosurgery. Patient was provided with strict return precautions and instructed to return to the emergency department if any new or worsening symptoms develop. The patient was discharged in stable condition. Lab Data 02/14/25 02:42 02/14/25 02:42 Labs: Lab Results 02/14/25 Range/Units 02:42 WBC 11.3 H (4.5-10.0) K/mm3 RBC 4.61 (4.6-6.20) M/mm3 Hgb 14.6 (14.0-18.0) g/dL Hct 43.4 (42.0-52.0) % MCV 94.1 (80-100) fl MCH 31.7 (26-34) pg MCHC 33.6 (32-36) g/dl RDW 13.2 (11.5-14.5) % Plt Count 200 (150-375) k/mm3 MPV 10.1 (7.4-10.4) fl Immature Gran % (Auto) 0.3 (0-0.5) % Neut % (Auto) 64.1 (45.5-73.1) % Lymph % (Auto) 22.3 (18.3-44.2) % [place] % (Auto) 10.0 H (2.6-8.5) % Eos % (Auto) 2.8 (0-4.4) % Baso % (Auto) 0.5 (0.2-1.2) % Lymph # (Auto) 2.51 (0.9-3.2) K/mm3 [place] # (Auto) 1.1 H (0.1-0.6) K/mm3 Eos # (Auto) 0.3 (0-0.3) K/mm3 Baso # (Auto) 0.1 (0.0-0.1) K/mm3 Abs Immat Gran (auto) 0.03 (0.00-0.031) K/mm3 Absolute Neuts (auto) 7.2 H (1.3-6.7) K/mm3 Absolute Nucleated RBC 0.000 (0.0-0.012) K/mm3 Nucleated RBC % 0.0 (0.0-0.2) % Sodium 138 (137-145) mmol/L Potassium 4.4 (3.4-5.0) mmol/L Chloride 107 (98-107) mmol/L Carbon Dioxide 20 L (22-30) mmol/L Anion Gap 11 (4-12) mmol/L BUN 25 H (9-20) mg/dL Creatinine 0.96 (0.7-1.3) mg/dL Estim Creat Clear Calc 70 ml/min Estimated GFR > 60 (59 - ) Glucose 107 (65-110) mg/dL Calcium 9.2 (8.4-10.2) mg/dL Magnesium 2.1 (1.6-2.3) mg/dL Total Bilirubin 1.2 (0.2-1.3) mg/dL AST 19 (17-59) U/L ALT 15 (6-50) U/L Alkaline Phosphatase 59 (38-126) U/L Total Protein 8.0 (6.3-8.2) g/dL Albumin 4.5 (3.5-5.1) g/dL Urine Color Yellow (Yellow) Urine Appearance Clear (Clear) Urine pH 5.5 (5.0-9.0) Ur Specific [place] 1.024 (1.001-1.035) Urine Protein Negative (Negative) mg/dL Urine Glucose (UA) 3+ H (Negative) mg/dL Urine Ketones Negative (Negative) mg/dL Ur Blood (Man) Negative (Negative) Urine Nitrate Negative (Negative) Urine Bilirubin Negative (Negative) Urine Urobilinogen 1.0 (<2.0) mg/dL Leukocyte Esterase Rfl Negative (Negative) BRIA/UL Discharge Plan Discharge Clinical Impression: 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 Return to the emergency department if any new or worsening symptoms develop. Use the prescribed narcotic as needed for pain if the ibuprofen and Lidoderm patches are not alleviating your symptoms. Patient Language: Sinhala Prescriptions: New hydrocodone-acetaminophen 5-325 mg tablet 1 tablet PO Q8H PRN (Reason: pain) Qty: 14 0RF lidocaine [Lidoderm] 5 % adhesive patch,medicated 1 patch topical DAILY Qty: 15 0RF Rx Instructions: leave on most painful area for up to 12 hrs No Action aspirin [Adult Aspirin Regimen] 81 mg tablet,delayed release (DR/EC) 81 mg PO DAILY PreserVision AREDS 4,296 mcg-226 mg-90 mg capsule 1 cap PO DAILY Jardiance 10 mg tablet 5 mg PO DAILY nitroglycerin 0.6 mg tablet, sublingual 0.6 mg sublingual Q5M PRN (Reason: chest pain) Qty: 30 0RF Rx Instructions: do not exceed 3 doses per episode clobetasol 0.05 % ointment topical fluorouracil 5 % cream topical Ozempic 1 mg/dose (4 mg/3 mL) pen injector 0.5 mg subcut WEEKLY Qty: 3 0RF metformin 500 mg tablet extended release 24 hr See Rx Instructions .ROUTE .COMPLEX Qty: 200 1RF Dose Instruction: TAKE 1 TABLET BY MOUTH TWICE DAILY Rx Instructions: TAKE 1 TABLET BY MOUTH TWICE DAILY carvedilol 6.25 mg tablet See Rx Instructions .ROUTE .COMPLEX Qty: 200 1RF Dose Instruction: TAKE 1 TABLET BY MOUTH EVERY 12 HOURS MUST ADMINISTER WITH FOOD/MEALS Rx Instructions: TAKE 1 TABLET BY MOUTH EVERY 12 HOURS MUST ADMINISTER WITH FOOD/MEALS olmesartan 40 mg tablet See Rx Instructions .ROUTE .COMPLEX Qty: 100 1RF Dose Instruction: TAKE 1 TABLET BY MOUTH DAILY Rx Instructions: TAKE 1 TABLET BY MOUTH DAILY icosapent ethyl [Vascepa] 1 gram capsule See Rx Instructions .ROUTE .COMPLEX Qty: 400 1RF Dose Instruction: TAKE 2 CAPSULES BY MOUTH TWICE DAILY Rx Instructions: TAKE 2 CAPSULES BY MOUTH TWICE DAILY ibuprofen 800 mg tablet See Rx Instructions .ROUTE .COMPLEX Qty: 100 1RF Dose Instruction: TAKE 1 TABLET BY MOUTH DAILY NEEDED FOR PAIN Rx Instructions: TAKE 1 TABLET BY MOUTH DAILY NEEDED FOR PAIN rosuvastatin 40 mg tablet See Rx Instructions .ROUTE .COMPLEX Qty: 100 1RF Dose Instruction: TAKE 1 TABLET BY MOUTH DAILY Rx Instructions: TAKE 1 TABLET BY MOUTH DAILY Follow-up/Referrals: Na Edmonds MD [Physician] - 3 Days Katya An DO [Primary Care Provider] - Time of Disposition: 04:12
--- OUTSIDE RECORDS SUMMARY | 2025-02-14 01:39 | XMS_ITS | Clinical Summary ---
Author Organization [facility] [place] [address] Address [address] [place] [address] Care Team Providers Care Building Rental Superintendent Name Role Phone Katya An DO Primary Care Provider [phone]- [phone] Alirio Rosas MD Unavailable Marco Gonzalez MD [...] (05/27/2022): Added automatically from request for surgery [id number] Hyperlipidemia 05/05/2021 Type 2 diabetes mellitus 05/05/2021 Myocardial infarction 05/05/2021 Special screening for malignant neoplasms, colon 02/09/2019 Overview (02/09/2019): Added automatically from request for surgery [id number] 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 Rectal pain [...] on file Legal Sex Male 3:44 AM WEB SUPPORT ENGINEER Gender Identity Not on file Sexual Orientation Not on file Obstetrics History Last Filed Vital Signs Vital Sign Reading Time Taken Comments Blood Pressure 126/74 11/08/2024 10:57 AM WEB SUPPORT ENGINEER Pulse 53 11/08/2024 10:57 AM WEB SUPPORT ENGINEER Temperature 36.3 C (97.3 F) 07/23/2022 3:45 AM CDT Respiratory Rate 18 07/23/2022 3:45 AM CDT Oxygen Saturation 96% 11/08/2024 10:57 AM WEB SUPPORT ENGINEER Inhaled Oxygen Concentration - - Weight 89.4 [...] 06/10/2022, 05/01 Medical Devices Implanted Type Area Quill Collector Device Identifier Shelf Expiration Date Model / Serial / Lot [employer] [id number] Synergy 3mm 16mm 144cm Radiopaque 1 Access Port Inflation Lumen - S0 - [id number] Implanted:Qty: 1 on 05/06/2021 by Alirio Rosas MD at [facility] Stent [employer] 07/14/2022 [id number] / 0 / [id number] Description:Circumflex [employer] [id number] Synergy 3.5mm 38mm 144cm Radiopaque 1 Access Port Inflation Lumen - S0 - [id number] Implanted:Qty: 1 on 05/06/2021 by Alirio Rosas MD at [facility] Stent [employer] 09/15/2022 [id number] 350 / 0 / [id number] Description:Circumflex [employer] Shell Acetabular Trident Ii Tritanium F Od56mm Hip 5 Screw Hole Cluster Sterile 702-04-56f - [id number] Implanted:Qty: 1 on 07/22/2022 by Marco Gonzalez MD at [facility] Left: Hip [employer] [id number] 04/09/2027 702-04-56F / / [id number] [employer] Screw Bone Trident Ii L50mm Od6.5mm Low Profile Hexagonal Sterile 6337-7608 - [id number] Implanted:Qty: 1 on 07/22/2022 by Marco Gonzalez MD at [facility] Left: Hip [employer] [id number] 05/05/2027 [id number] / / [id number] [employer] Insert Trident 0deg X3 36mm Id 723-00-36f - [id number] Implanted:Qty: 1 on 07/22/2022 by Marco Gonzalez MD at [facility] Left: Hip [employer] 05/16/2027 723-00-36F / / [id number] [employer] Accolade 108mm 35mm Modular Hip 127d 5 Taper Stem Femoral Sterile [id number] - [id number] Implanted:Qty: 1 on 07/22/2022 by Marco Gonzalez MD at [facility] Left: Hip [employer] [id number] 05/31/2027 [id number] / / [id number] [employer] V40 36mm Anatomic Hip -2.5mm Offset Taper Head Femoral [employer] 6570-0-436 - [id number] Implanted:Qty: 1 on 07/22/2022 by Marco Gonzalez MD at [facility] Left: Hip [employer] [id number] 08/02/2025 6570-0-436 / / [id number] Procedures Procedure Name Priority Date/Time Associated Diagnosis Comments POCT LIPID PANEL Routine 07/12/2024 11:3 0 AM CDT Hyperlipidemia, unspecified hyperlipidemia type EGFR Routine 07/09/2022 2:32 PM CDT Preop testing HEMOGLOBIN A1C Routine 07/09/2022 2:32 PM CDT Preop testing COLONOSCOPY 03/02/2019 11:50 AM CDT PSA SCREEN STAT 12/02/2018 10:[address] ABDOMEN PELVIS W CONTRAST ED 12/02/2018 12:33 AM WEB SUPPORT ENGINEER from Last 3 Months or Most Recently [...] [address] Department [place] [address] * (ABNORMAL) Hemoglobin A1c (07/09/2022 [...] and children were not included. (Diabetes Care [id number], 2008). The eAG is not equivalent to a fasting glucose. Blood 07/09/2022 2:32 PM CDT 07/09/2022 2:32 PM CDT us Suri Perez NP LAB BLOOD ORDERABLES Final R esult [facility] [address] Department [place] [address] * COLONOSCOPY (03/02/2019 11:50 AM CDT) Anatomical Region Laterality Modality Other Narrative Procedure Note Max Edmond MD - 03/02/2019 11:50 AM CDT ENDOSCOPY LAB Patient Name: Hadley Culver Procedure Date: 03/02/2019 11:50 AM Admit Type: Outpatient Room: [facility] Date of : 1955 Instrument Name: [...] the bowel preparation wasevaluated using the BBPS ([place] Bowel Preparation Scale) with scores of: Right [...] Result * PSA screen (12/02/2018 10:50 AM WEB SUPPORT ENGINEER) PSA-Total 0.69 <=5.40 ng/mL [facility] Comment: Interpretive Data AGE SEX REFERENCE INTERVAL 0 minutes-150 years Female None 0 minutes-49 years Male None 50-59 years Male 0-3.90 60-69 years Male 0-5.40 70-79 years Male 0-6.20 80-150 years Male 0-6.20 Current interpretive data last revised 2018. Blood specimen (specimen) 12/02/2018 10:50 AM WEB SUPPORT ENGINEER 12/02/2018 11:01 AM WEB SUPPORT ENGINEER Narrative [facility] - 12/02/2018 11:37 AM WEB SUPPORT ENGINEER us Danny Lynn MD LAB BLOOD ORDERABLES Radha l Result [facility] [address] Department [place] [address] * CT Abdomen Pelvis W Contrast (12/02/2018 12:33 AM WEB SUPPORT ENGINEER) Anatomical Region Laterality Modality Body N/A Computed Tomogra phy 12/02/2018 10:3 0 AM WEB SUPPORT ENGINEER Addenda Addendum by Norah Buckley MD on 12/02/2018 11:39 AM WEB SUPPORT ENGINEER Rectal wall does appear to be prominent. However, no surrounding soft tissue inflammatory change or abscess is seen. Electronically signed by: Norah Buckley M.D. Impressions 12/02/2018 10:35 AM WEB SUPPORT ENGINEER 1. Hepatomegaly with hepatic steatosis 2. Cholelithiasis 3. Very small hiatal hernia 4. Prominence of the wall the sigmoid colon, likely related to incomplete distention. Associated changes of obstruction or acute inflammatory change is not seen. This report is in agreement with the preliminary report Electronically signed by: Norah Buckley M.D. Narrative 12/02/2018 10:35 AM WEB SUPPORT ENGINEER EXAM: CT abdomen and pelvis with IV [...] Most Recently Relevant to Health Maintenance Insurance [facility] ADVANTAGE [facility] AD[facility] Advance Directives For more information, please contact: [phone] * Full Code (Latest Code Status on File) Date Activated Date Inactivated Comments 07/22/2022 4:52 PM 07/23/2022 6:12 PM * Full Code Date Activated Date Inactivated Comments 05/05/2021 6:49 PM 05/07/2021 5:34 PM * Full Code Date Activated Date Inactivated Comments 03/02/2019 11:33 AM 03/02/2019 5:28 PM * Full Code Date Activated Date Inactivated Comments 12/02/2018 3:32 AM 12/04/2018 6:21 PM Care Teams Building Rental Superintendent Relationship Specialty Start Date End Date Katya An PCP - General Family Medicine 08/25/20 Alirio Rosas MD Referring Physician Cardiovascular Disease 05/07/21 Marco Gonzalez MD [address] [address] Consulting Physician Orthopedic Surgery 07/23/22
--- OUTSIDE RECORDS SUMMARY | 2025-02-14 01:39 | XMS_ITS | Referral Summary ---
Author Organization [facility] [place] [address] Address [address] [place] [address] Care Team Providers [employer] Field Supervisor Name Role Phone Katya An Primary Care Provider [phone]- [phone] Alirio Rosas MD Unavailable Marco Gonzalez MD [...] (05/27/2022): Added automatically from request for surgery [id number] Hyperlipidemia 05/05/2021 Type 2 diabetes mellitus 05/05/2021 Myocardial infarction 05/05/2021 Special screening for malignant neoplasms, colon 02/09/2019 Overview (02/09/2019): Added automatically from request for surgery [id number] 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 Rectal pain [...] on file Legal Sex Male 3:44 AM CD REACTOR OPERATOR HEAD Gender Identity Not on file Sexual Orientation Not on file Last Filed Vital Signs Vital Sign Reading Time Taken Comments Blood Pressure 126/74 11/08/2024 10:57 AM CD REACTOR OPERATOR HEAD Pulse 53 11/08/2024 10:57 AM CD REACTOR OPERATOR HEAD Temperature 36.3 C (97.3 F) 07/23/2022 3:45 AM CDT Respiratory Rate 18 07/23/2022 3:45 AM CDT Oxygen Saturation 96% 11/08/2024 10:57 AM CD REACTOR OPERATOR HEAD Inhaled Oxygen Concentration - - Weight 89.4 kg (197 lb) 07/12/2024 11:26 AM CDT Height 172.7 cm (5' 8 ) 07/12/2024 11:26 AM CDT Body Mass Index 29.95 07/12/2024 11:26 AM CDT Plan of Treatment Not on file Medical Devices Implanted Type Area Shop Superintendent Device Identifier Shelf Expiration Date Model / Serial / Lot [employer] [id number] Synergy 3mm 16mm 144cm Radiopaque 1 Access Port Inflation Lumen - S0 - [id number] Implanted:Qty: 1 on 05/06/2021 by Alirio Rosas MD at [facility] [employer] 07/14/2022 [id number] / 0 / [id number] Description:[employer] [id number] Synergy 3.5mm 38mm 144cm Radiopaque 1 Access Port Inflation Lumen - S0 - [id number] Implanted:Qty: 1 on 05/06/2021 by Alirio Rosas MD at [facility] [employer] 09/15/2022 [id number] 350 / 0 / [id number] Description:Circumflex [employer] Shell Acetabular Trident Ii Tritanium F Od56mm Hip 5 Screw Hole Cluster Sterile 702-04-56f - [id number] Implanted:Qty: 1 on 07/22/2022 by Marco Gonzalez MD at [facility] Left: Hip [employer] [id number] 04/09/2027 702-04-56F / / [id number] [employer] Screw Bone Trident Ii L50mm Od6.5mm Low Profile Hexagonal Sterile 8904-8717 - [id number] Implanted:Qty: 1 on 07/22/2022 by Marco Gonzalez MD at [facility] Left: Hip [employer] [id number] 05/05/2027 [id number] / / [id number] [employer] Insert Trident 0deg X3 36mm Id 723-00-36f - [id number] Implanted:Qty: 1 on 07/22/2022 by Marco Gonzalez MD at [facility] Left: Hip [employer] 05/16/2027 723-00-36F / / [id number] [employer] Accolade 108mm 35mm Modular Hip 127d 5 Taper Stem Femoral Sterile [id number] - [id number] Implanted:Qty: 1 on 07/22/2022 by Marco Gonzalez MD at [facility] Left: Hip [employer] [id number] 05/31/2027 [id number] / / [id number] [employer] V40 36mm Anatomic Hip -2.5mm Offset Taper Head Femoral [employer] 6570-0-436 - [id number] Implanted:Qty: 1 on 07/22/2022 by Marco Gonzalez MD at [facility] Left: Hip [employer] [id number] 08/02/2025 6570-0-436 / / [id number] Procedures Procedure Name Priority Date/Time Associated Diagnosis Comments POCT LIPID PANEL Routine 07/12/2024 11:3 0 AM CDT Hyperlipidemia, unspecified hyperlipidemia type EGFR Routine 07/09/2022 2:32 PM CDT Preop testing HEMOGLOBIN A1C Routine 07/09/2022 2:32 PM CDT Preop testing COLONOSCOPY 03/02/2019 11:50 AM CDT PSA SCREEN STAT 12/02/2018 10:50 AM CD REACTOR OPERATOR HEAD CT ABDOMEN PELVIS W CONTRAST ED 12/02/2018 12:33 AM CD REACTOR OPERATOR HEAD from Last 3 Months or Most Recently [...] CDT) eGFR 77 mL/min/1. 73 m2 [facility] Comment: Interpretive Data Reference Interval Normal [...] ORDERABLES Final R esult Performing Organization Address [facility] Co de Phone Number [facility] [address] [place] [address] * (ABNORMAL) Hemoglobin A1c (07/09/2022 2:32 PM CDT) [facility] Hgb A1C 5.8(H) 4.0 - 5.6 % [facility] Estimated Average Glucose 120 mg/dL [facility] Comment: The ADA recommends reporting an estimated Average Glucose (eAG) with all Hemoglobin A1c results using the equation derived from a study of 507 normal and diabetic adults. Minority populations were underrepresented and children were not included. (Diabetes Care 31:4409-8600, 2008). The eAG is not equivalent to a fasting glucose. Blood 07/09/2022 2:32 PM CDT 07/09/2022 2:32 PM CDT Suri Perez NP LAB BLOOD ORDERABLES Final R esult Performing Organization Address [facility] Co de Phone Number [facility] [address] [place] [address] * COLONOSCOPY (03/02/2019 11:50 AM CDT) Anatomical Region Laterality Modality Other Narrative Procedure Note Max Edmond MD - 03/02/2019 11:50 AM CDT ENDOSCOPY LAB Patient Name: Hadley Culver Procedure Date: 03/02/2019 11:50 AM Admit Type: Outpatient Room: [facility] Date of : 1955 Instrument Name: [id number] [...] the bowel preparation wasevaluated using the BBPS (Winters Bowel Preparation Scale) with scores of: Right [...] Result * PSA screen (12/02/2018 10:50 AM CD REACTOR OPERATOR HEAD) PSA-Total 0.69 <=5.40 ng/mL [facility] Comment: Interpretive Data AGE SEX REFERENCE INTERVAL 0 minutes-150 years Female None 0 minutes-49 years Male None 50-59 years Male 0-3.90 60-69 years Male 0-5.40 70-79 years Male 0-6.20 80-150 years Male 0-6.20 Current interpretive data last revised 2018. Blood specimen (specimen) 12/02/2018 10:50 AM CD REACTOR OPERATOR HEAD 12/02/2018 11:01 AM CD REACTOR OPERATOR HEAD Narrative [facility] - 12/02/2018 11:37 AM CD REACTOR OPERATOR HEAD us Danny Lynn MD LAB BLOOD ORDERABLES Radha l Result [facility] [address] [place] [address] * CT Abdomen Pelvis W Contrast (12/02/2018 12:33 AM CD REACTOR OPERATOR HEAD) Anatomical Region Laterality Modality Body N/A Computed Tomogra phy 12/02/2018 10:3 0 AM CD REACTOR OPERATOR HEAD Addenda Addendum by Norah Buckley MD on 12/02/2018 11:39 AM CD REACTOR OPERATOR HEAD Rectal wall does appear to be prominent. However, no surrounding soft tissue inflammatory change or abscess is seen. Electronically signed by: Norah Buckley M.D. Impressions 12/02/2018 10:35 AM CD REACTOR OPERATOR HEAD 1. Hepatomegaly with hepatic steatosis 2. Cholelithiasis 3. Very small hiatal hernia 4. Prominence of the wall the sigmoid colon, likely related to incomplete distention. Associated changes of obstruction or acute inflammatory change is not seen. This report is in agreement with the preliminary report Electronically signed by: Norah Buckley M.D. Narrative 12/02/2018 10:35 AM CD REACTOR OPERATOR HEAD EXAM: CT abdomen and pelvis with IV [...] Relevant to Health Maintenance Insurance [id number] MEDICARE ADVANTAGE [facility] MEDICARE ADVANTAGE [facility] MEDICARE ADVANTAGE Advance Directives For more information, please contact: [phone] * Full Code (Latest Code Status on File) Date Activated Date Inactivated Comments 07/22/2022 4:52 PM 07/23/2022 6:12 PM * Full Code Date Activated Date Inactivated Comments 05/05/2021 6:49 PM 05/07/2021 5:34 PM * Full Code Date Activated Date Inactivated Comments 03/02/2019 11:33 AM 03/02/2019 5:28 PM * Full Code Date Activated Date Inactivated Comments 12/02/2018 3:32 AM 12/04/2018 6:21 PM Care Teams [employer] Field Supervisor Relationship Specialty Start Date End Date Katya An DO PCP - General Family Medicine 08/25/20 Alirio Rosas MD Referring Physician Cardiovascular Disease 05/07/21 Marco Gonzalez MD [address] [address] Consulting Physician Orthopedic Surgery 07/23/22
[2025-02-14] MEDS: HYDROcodone/acetaminophen (*CRX) 5-325 MG TABLET 1 TAB PO (02:45)
[2025-02-14] MEDS: KETOROLAC 15 MG/ML VIAL (*BKC) IM (02:45)
[2025-02-14] MEDS: LIDOCAINE 5% PATCH 1 PATCH TRANSDERM (02:48)
[2025-02-14 02:49] LABS: Basophils Absolute Auto 0.1 K/mm3 (0.0-0.1); Basophils Percent Auto 0.5 % (0.2-1.2); Eosinophils Absolute Auto 0.3 K/mm3 (0-0.3); Eosinophils Percent Auto 2.8 % (0-4.4); Hematocrit 43.4 % (42.0-52.0); Hemoglobin 14.6 g/dL (14.0-18.0); Immature Granulocyte Absolute 0.03 K/mm3 (0.00-0.031); Immature Granulocyte Percent A 0.3 % (0-0.5); Lymphocytes Absolute Auto 2.51 K/mm3 (0.9-3.2); Lymphocytes Percent Auto 22.3 % (18.3-44.2); Mean Corpuscular HGB Conc 33.6 g/dl (32-36); Mean Corpuscular Hemoglobin 31.7 pg (26-34); Mean Corpuscular Volume 94.1 fl (80-100); Mean Platelet Volume 10.1 fl (7.4-10.4); Monocytes Absolute Auto 1.1 K/mm3 (0.1-0.6); Neutrophils Absolute Auto 7.2 K/mm3 (1.3-6.7); Neutrophils Percent Auto 64.1 % (45.5-73.1); Platelet Count Result 200 k/mm3 (150-375); Red Blood Count 4.61 M/mm3 (4.6-6.20); Red Cell Distribution Width 13.2 % (11.5-14.5); White Blood Count 11.3 K/mm3 (4.5-10.0)
[2025-02-14 02:50] LABS: Add Urine Microscopic? NO; Appearance Urine Clear (Clear); Bilirubin Urine Negative (Negative); Blood Urine Negative (Negative); Color Urine Yellow (Yellow); Glucose Urine UA 3+ mg/dL (Negative); Ketones Urine Negative (Negative); Leukocyte Esterase Ur Negative LEU/UL (Negative); Nitrate Urine Negative (Negative); Protein Urine Negative (Negative); Specific Grav Ur 1.024 (1.001-1.035); pH Urine 5.5 (5.0-9.0)
[2025-02-14 02:59] LABS: Alanine Aminotransferase 15 U/L (6-50); Albumin Level 4.5 g/dL (3.5-5.1); Alkaline Phosphatase 59 U/L (38-126); Anion Gap 11 mmol/L (4-12); Aspartate Amino Transferase 19 U/L (17-59); Bilirubin,Total 1.2 mg/dL (0.2-1.3); Blood Urea Nitrogen 25 mg/dL (9-20); Calcium 9.2 mg/dL (8.4-10.2); Carbon Dioxide 20 mmol/L (22-30); Chloride 107 mmol/L (98-107); Estimated CRCL calculation 70 ml/min; Estimated Glomerular Filt Rate > 60; Glucose 107 mg/dL (65-110); Magnesium 2.1 mg/dL (1.6-2.3); Potassium 4.4 mmol/L (3.4-5.0); Sodium 138 mmol/L (137-145)
== END 2025-02-14 04:44 | disposition home or self-care (01) ==
PROVIDERS: Emergency Provider Emergency Medicine; PCP Family Medicine
DX: M48.061 Spinal stenosis, lumbar region without neurogenic claudication (principal); Z79.82 Long term (current) use of aspirin; E11.9 Type 2 diabetes mellitus without complications; F41.9 Anxiety disorder, unspecified; I10 Essential (primary) hypertension; E78.2 Mixed hyperlipidemia; Z95.1 Presence of aortocoronary bypass graft; F17.210 Nicotine dependence, cigarettes, uncomplicated
CPT/HCPCS: 36415; 72131; 80053; 81003; 83735; 85025; 96372; 99284; A9270; J1885

== ENCOUNTER 2025-03-05 13:25 | Outpatient (CLI) | payer MEDICARE, SELFPAY ==
--- NOTE | ~2025-03-05 | MR_ITS ---
Procedure: MR lumbar spine wo con Ordering provider: Lynette Dempsey APRN History: . Spinal stenosis, site unspecified . Comparison: None. Technique: MRI thoracic spine without contrast. FINDINGS: SPINAL CORD: Normal. Ends at the level of T12-L1. VERTEBRAL BODIES: Normal height and alignment. No compression fracture. Normal marrow signal. DISK SPACES: Normal. T12-L1: Bilateral facet joint disease. L1-L2: No stenosis. L2-L3: No stenosis. L3-L4: Mild spinal canal stenosis. Mild diffuse disc bulge with bilateral narrowing of the foramina. The disc is abutting the root outside the foramina on the right side. L4-L5: Mild diffuse disc bulge. L5-S1: Mild to moderate spinal canal stenosis with bilateral narrowing of the foramina and nerve comp ression. Bilateral facet joint disease. Prominence of the fat is seen posteriorly opposite the disc of L3-L4. PARASPINOUS SOFT TISSUES: Normal. IMPRESSION: No acute osseous abnormality. Multilevel diffuse disc bulge with variable degrees of spinal canal stenosis and intervertebral diane inal narrowing. Reviewed, dictated and finalized at [facility]. IMPRESSION: No acute osseous abnormality. Multilevel diffuse disc bulge with variable degrees of spinal canal stenosis an d intervertebral foraminal narrowing.
--- NOTE | ~2025-03-05 | MR_ITS ---
MRI of the thoracic spine Clinical History: Pain Technique: Axial T2-weighted and gradient images, and sagittal T1-weighted, T2-weighted, and STIR valery ges were acquired. Findings: There is no fracture or subluxation of the thoracic spine. Vertebral bodies maintain normal height and alignment. No bone marrow signal abnormality seen. At T7-T8, there is a small central disc protrusion, which minimally effaces the ventral thecal sac, t here is no jewels canal stenosis or cord compression. At T8-T9, there is a central disc extrusion extending inferiorly behind the T9 vertebral body central ly and to the left paracentral region. Again, there is effacement of the ventral thecal sac and proba ble minimal flattening the ventral cord. There is bilateral neural foraminal narrowing at T11-T12 with mild facet arthropathy. No other disc bulge or herniation seen at any other thoracic level. No other areas of canal stenosis, thecal sac effacement, or cord compression. Remaining neural foramina are preserved bilaterally thro ughout the thoracic spine. No abnormal signal seen in the spinal cord. Paravertebral soft tissues are unremarkable. Impression: Central disc extrusion at T8-T9, extending inferiorly, resulting in minimal flattening of the ventral cord. Small central disc protrusion at T7-T8 without cord compression. Bilateral neural foraminal narrowing at T11-T12. Reviewed, dictated and finalized at [facility]. Impression: Central disc extrusion at T8-T9, extending inferiorly, resulting in minimal fla ttening of the ventral cord. Small central disc protrusion at T7-T8 without cord compression. Bilateral neural foraminal narrowing at T11-T12.
== END 2025-03-05 13:26 | disposition home or self-care (01) ==
PROVIDERS: PCP Nurse Practitioner Adult Health; Visit Provider Nurse Practitioner Adult Health
DX: M48.00 Spinal stenosis, site unspecified (principal); M51.26 Other intervertebral disc displacement, lumbar region; M51.24 Other intervertebral disc displacement, thoracic region
CPT/HCPCS: 72146; 72148